=== PATIENT | female | born 1980 | race African-American/Black ===

== ENCOUNTER 2019-10-29 08:46 | Inpatient (IN) | payer OTHER ==
[~2019-10-29] VITALS: Ht 167.6 cm; Wt 108.0 kg
--- NOTE | 2019-10-29 09:11 | PHYS DOC ---
Past Medical History Past Medical History: Hypothyroid Past Surgical History: No Surgical History Additional Past Surgical Histo: Complete Thyroidectomy Smoking Status: Never Smoker Alcohol Use: Rarely Drug Use: None General Adult EDM: Chief Complaint: ABDOMINAL PAIN HPI: HPI: Patient is a 38-year-old female with a history of thyroidectomy and subsequent hypothyroidism who presents with a 2 to 3-day history of severe, progressive abdominal discomfort. She has had some nausea but no vomiting. She has had no appetite. She states the pain is primarily located in her lower abdomen and is severe in nature. She has had diarrhea that has been nonstop over the last few days. She denies any melena or hematochezia. She has not had any fever chills or sweats. She does feel profoundly weak though [] Review of Systems: Review of Systems: Constitutional: Denies fever or chills. [] Eyes: Denies change in visual acuity. [] HENT: Denies nasal congestion or sore throat. [] Respiratory: Denies cough or shortness of breath. [] Cardiovascular: Denies chest pain or edema. [] GI: Per HPI [] : Denies dysuria. [] Musculoskeletal: Denies back pain or joint pain. [] Integument: Denies rash. [] Neurologic: Denies headache, focal weakness or sensory changes. [] Endocrine: Denies polyuria or polydipsia. [] Lymphatic: Denies swollen glands. [] Psychiatric: Reports anxiety [] Heart Score: Risk Factors: Risk Factors: DM, Current or recent (<one month) smoker, HTN, HLP, family history of CAD, obesity. Risk Scores: Score 0 - 3: 2.5% MACE over next 6 weeks - Discharge Home Score 4 - 6: 20.3% MACE over next 6 weeks - Admit for Clinical Observation Score 7 - 10: 72.7% MACE over next 6 weeks - Early Invasive Strategies Allergies: Allergies: Allergies Coded Allergies Type Severity Reaction Last Updated Verified No Known Drug Allergies 12/22/14 No Physical Exam: PE: Constitutional: Well developed, well nourished, appears uncomfortable and acutely ill [] HENT: Normocephalic, atraumatic, bilateral external ears normal, oropharynx moist, no oral exudates, nose normal. [] Eyes: PERRLA, EOMI, conjunctiva normal, no discharge. [] Neck: Normal range of motion, no tenderness, supple, no stridor. [] Cardiovascular: Tachycardia no murmur [] Lungs & Thorax: Bilateral breath sounds clear to auscultation [] Abdomen: Morbidly obese, general tenderness to palpation with voluntary guarding but no rebound [] Skin: Warm, dry, no erythema, no rash. [] Back: No tenderness, no CVA tenderness. [] Extremities: No tenderness, no cyanosis, no clubbing, ROM intact, no edema. [] Neurologic: Alert and oriented X 3, normal motor function, normal sensory function, no focal deficits noted. [] Psychologic: Anxious. [] Current Patient Data: Labs: Laboratory Tests Test 10/29/19 09:01 POC Urine HCG, Qualitative Hcg negative (Negative) Vital Signs: Vital Signs Date Time Temp Pulse Resp B/P (MAP) Pulse Ox O2 Delivery O2 Flow Rate FiO2 10/29/19 08:57 98.1 134 24 162/105 (124) 99 Room Air 98.1 EKG: EKG: [] Radiology/Procedures: Radiology/Procedures: [] Impression: REASON: abdominal pain PROCEDURE: CT ABD PELV W/ IV CONTRST ONLY Study: CT abdomen/pelvis with intravenous contrast Indication: Abdominal pain. Comparison: 12/11/2005 Technique: Helical CT imaging performed of the abdomen and pelvis after the intravenous administration of 75 cc Omnipaque 300 contrast. Sagittal and coronal reformats were obtained. One or more of the following individualized dose reduction techniques were utilized for this examination: 1. Automated exposure control 2. Adjustment of the mA and/or kV according to patient size 3. Use of iterative reconstruction technique. Findings: Unremarkable lower chest. The liver is somewhat prominent in size but no different from the [address] evidence for acute cholecystitis. Unchanged caliber of the common bile duct. Unremarkable pancreas. Within normal limits spleen and adrenal glands. Symmetric kidney size and enhancement. No hydroureteronephrosis. Circumferential wall thickening of the urinary bladder though potentially in part related to underdistention. Within normal limits uterus for patient age. No concerning adnexal abnormality. Mostly collapsed colon. Some incompletely formed stool within the proximal colon suggesting a diarrheal state. Mild wall thickening of the proximal colon. The appendix is not well-visualized. Mild small bowel dilatation such as along the central aspect of the abdomen extending into the upper pelvis. No discrete transition point to suggest a mechanical obstruction however the more distal bowel exhibits mild wall thickening with surrounding inflammatory changes through the terminal ileum such as seen on axial image 77 series 2. No pneumatosis or perforation. Unremarkable stomach noting incomplete distention. Unremarkable vasculature. Small amount of fluid within the pelvis. No lymphadenopathy. No free air. Unremarkable body wall soft tissues. Asymmetric periarticular sclerosis around the right SI joint. Impression: Segments of mild small bowel dilatation in addition to regions of small bowel wall thickening and surrounding inflammatory changes such as at the anterior pelvis on image 77 series 2. Mild colonic inflammatory changes as well. The appearance does not suggest an obstruction and is favored on account of an enterocolitis either infectious or inflammatory. Recommend correlation for a known history of inflammatory bowel disease. Note is also made that there is asymmetric manifestations of sacroiliitis on the right further raising the question of inflammatory bowel disease. Course & Med Decision Making: Course & Med Decision Making Pertinent Labs and Imaging studies reviewed. (See chart for details) [ED course: Evaluation reveals a 38-year-old that appears quite ill she is tachycardic she was given 1 L of IV fluids which did bring her heart rate down from the 130s to the low 100s she was also given some pain and nausea medicine which she states did make her feel some better. Her potassium was low at 2.7 she was given 20 mEq of potassium IV and 40 mEq p.o. I do believe that she would benefit from IV hydration and a GI consult as an inpatient.] Jozef Disclaimer: Jozef Disclaimer: This electronic medical record was generated, in whole or in part, using a voice recognition dictation system. Departure Departure Impression: Primary Impression: Pancolitis Additional Impressions: Diarrhea Qualified Codes: A09 - Infectious gastroenteritis and colitis, unspecified Hypokalemia Disposition: ADMITTED INPATIENT Admitting Physician: BRENDA Condition: STABLE Referrals: VALENTINE GAMING APRN (PCP) KENNY DEMPSEY DO October 29, 2019 09:11
[2019-10-29] MEDS ORDERED: ONDANSETRON PF 4 MG/2 ML VIAL. ONE (09:42)
[2019-10-29] MEDS ORDERED: KETOROLAC 30 MG/ML VIAL. ONE (09:42)
[2019-10-29] MEDS ORDERED: fentaNYL PF VIAL 100 MCG/2 ML VIAL ONE (09:42)
[2019-10-29] MEDS ORDERED: KETOROLAC 30 MG/ML VIAL. IV ONE (09:45)
[2019-10-29] MEDS ORDERED: IV NORMAL SALINE 1000ML BAG 1,000 ML IV ONE (09:45)
[2019-10-29] MEDS ORDERED: ONDANSETRON PF 4 MG/2 ML VIAL. IV ONE (09:45)
[2019-10-29] MEDS ORDERED: fentaNYL PF VIAL 100 MCG/2 ML VIAL IV ONE (09:45)
[2019-10-29 10:06] LABS: BASO % 0 % (0-3); EOS % 0 % (0-3); HEMATOCRIT 37.3 % (36.0-47.0); HEMOGLOBIN 12.3 g/dL (12.0-15.5); LYMPH # 0.9 x10^3/uL (1.0-4.8); LYMPH % 5 % (24-48); MEAN CORPUSCULAR HEMOGLOBIN 28 pg (25-35); MEAN CORPUSCULAR HGB CONC 33 g/dL (31-37); MEAN CORPUSCULAR VOLUME 83 fL (79-100); MONO # 0.4 x10^3/uL (0.0-1.1); MONO % 2 % (0-9); NEUT % 93 % (31-73); PLATELET COUNT 345 x10^3/uL (140-400); RED BLOOD COUNT 4.48 x10^6/uL (3.50-5.40); RED CELL DISTRIBUTION WIDTH 15.7 % (11.5-14.5); WHITE BLOOD COUNT 20.3 x10^3/uL (4.0-11.0)
[2019-10-29] MEDS ORDERED: IOHEXOL 300 MG/ML 100ML VIAL. IV ONE (10:15)
[2019-10-29 10:21] LABS: ALBUMIN/GLOBULIN RATIO 0.5 (1.0-1.7); CALCIUM 8.7 mg/dL (8.5-10.1); GFR 75.1; TOTAL BILIRUBIN 0.5 mg/dL (0.2-1.0); TOTAL PROTEIN 8.5 g/dL (6.4-8.2)
[2019-10-29 10:26] LABS: POTASSIUM 2.7 mmol/L (3.5-5.1)
[2019-10-29] MEDS ORDERED: POTASSIUM CHLORIDE 20 MEQ TABLET.ER. PO ONE (10:30)
[2019-10-29] MEDS ORDERED: POTASSIUM CHLORIDE 20MEQ 100 ML IV ONE (10:45)
--- NOTE | 2019-10-29 11:12 | RAD ---
Study: CT abdomen/pelvis with intravenous contrast Indication: Abdominal pain. Comparison: 12/11/2005 Technique: Helical CT imaging performed of the abdomen and pelvis after the intravenous administration of 75 cc Omnipaque 300 contrast. Sagittal and coronal reformats were obtained. One or more of the following individualized dose reduction techniques were utilized for this examination: 1. Automated exposure control 2. Adjustment of the mA and/or kV according to patient size 3. Use of iterative reconstruction technique. Findings: Unremarkable lower chest. The liver is somewhat prominent in size but no different from the [address] evidence for acute cholecystitis. Unchanged caliber of the common bile duct. Unremarkable pancreas. Within normal limits spleen and adrenal glands. Symmetric kidney size and enhancement. No hydroureteronephrosis. Circumferential wall thickening of the urinary bladder though potentially in part related to underdistention. Within normal limits uterus for patient age. No concerning adnexal abnormality. Mostly collapsed colon. Some incompletely formed stool within the proximal colon suggesting a diarrheal state. Mild wall thickening of the proximal colon. The appendix is not well-visualized. Mild small bowel dilatation such as along the central aspect of the abdomen extending into the upper pelvis. No discrete transition point to suggest a mechanical obstruction however the more distal bowel exhibits mild wall thickening with surrounding inflammatory changes through the terminal ileum such as seen on axial image 77 series 2. No pneumatosis or perforation. Unremarkable stomach noting incomplete distention. Unremarkable vasculature. Small amount of fluid within the pelvis. No lymphadenopathy. No free air. Unremarkable body wall soft tissues. Asymmetric periarticular sclerosis around the right SI joint. Impression: Segments of mild small bowel dilatation in addition to regions of small bowel wall thickening and surrounding inflammatory changes such as at the anterior pelvis on image 77 series 2. Mild colonic inflammatory changes as well. The appearance does not suggest an obstruction and is favored on account of an enterocolitis either infectious or inflammatory. Recommend correlation for a known history of inflammatory bowel disease. Note is also made that there is asymmetric manifestations of sacroiliitis on the right further raising the question of inflammatory bowel disease. Electronically signed by: OMAR TEJADA MD (10/29/2019 11:10 AM) [id number]
[2019-10-29] MEDS ORDERED: IV NORMAL SALINE 500ML BAG 500 ML IV ONE (11:15)
[2019-10-29 11:19] LABS: % BANDS 3 % (0-9); % LYMPHS 4 % (24-48); % MONOS 2 % (0-10); % SEGS 91 % (35-66); PLT ESTIMATE ADEQUATE (ADEQUATE)
[2019-10-29] MEDS ORDERED: ACETAMINOPHEN 325 MG TABLET. PO PRN ×2 (12:00→12:15)
[2019-10-29] MEDS ORDERED: ONDANSETRON PF 4 MG/2 ML VIAL. IV PRN ×2 (12:00→12:15)
[2019-10-29] MEDS ORDERED: CIPROFLOXACIN HCL 250 MG TABLET. PO ONE (12:00)
[2019-10-29] MEDS ORDERED: POTASSIUM CHLORIDE 20 MEQ in IV NORMAL SALINE 1000ML BAG 1,000 ML IV SCH (12:10)
[2019-10-29] MEDS ORDERED: DOCUSATE SODIUM 100 MG CAPSULE. PO PRN (12:15)
[2019-10-29] MEDS ORDERED: diphenhydrAMINE 50 MG/ML VIAL IVP PRN (12:15)
[2019-10-29] MEDS ORDERED: guaiFENesin ORAL 200 MG/10 ML LIQUID. PO PRN (12:15)
[2019-10-29] MEDS ORDERED: ALBUTEROL SULFATE 2.5 MG/3 ML NEBU. NEB PRN (12:15)
--- NOTE | 2019-10-29 14:00 | PDOC2 ---
GI CONSULT Reason For Consult: pancolitis HPI: HPI: 38 y/o female seen w/ Dr. Bergman in the ER. Ill since Friday w/ abdominal cramping (diffuse, probably mostly in the middle - constant) and diarrhea (watery/loose stools). Possibly some nausea related to pain. No precipitating events and no similar symptoms in the past. Labs significant for WBC 20.3, K 2.7. On CT: mostly collapsed colon w/ mild wall thickening of proximal colon, mild small bowel dilatation w/ inflammatory changes through terminal ileum, and asymmetric periarticular sclerosis around right SI joint. Given Cipro and Flagyl IV in ER. Denies reflux/heartburn, dysphagia, vomiting, constipation, hematochezia, melena, or weight loss. No rash/skin lesions, fever, or vision changes. Typically no issues w/ nausea, abd pain, or diarrhea. No previous EGD or colonoscopy. No GB, liver, pancreas, or PUD history. Chronic LBP - stable. PMH: PMH: thyroidectomy for goiter, now hypothyroidism FH: Family History: No pertinent hx (no GI cancers or IBD), Cancer (grandfather - prostate, mother - breast) Social History: Smoke: No ALCOHOL: occassional Drugs: None ROS: GEN: Denies fevers, chills, sweats HEENT: Denies blurred vision, sore throat CV: Denies chest pain RESP: Denies shortness of air, cough GI: Per HPI : Denies hematuria, dysuria ENDO: Denies weight changes NEURO: Denies confusion, dizziness MSK: Denies weakness, joint pain/swelling SKIN: Denies jaundice, pruritus Vitals: Vitals: Vital Signs Date Time Temp Pulse Resp B/P (MAP) Pulse Ox O2 Delivery O2 Flow Rate FiO2 10/29/19 08:57 98.1 134 24 162/105 (124) 99 Room Air 98.1 Labs: Labs: Laboratory Tests Test 10/29/19 09:01 10/29/19 09:26 Bedside Urine HCG, Qualitative Hcg negative (Negative) White Blood Count 20.3 x10^3/uL (4.0-11.0) Red Blood Count 4.48 x10^6/uL (3.50-5.40) Hemoglobin 12.3 g/dL (12.0-15.5) Hematocrit 37.3 % (36.0-47.0) Mean Corpuscular Volume 83 fL (79-100) Mean Corpuscular Hemoglobin 28 pg (25-35) Mean Corpuscular Hemoglobin Concent 33 g/dL (31-37) Red Cell Distribution Width 15.7 % (11.5-14.5) Platelet Count 345 x10^3/uL (140-400) Neutrophils (%) (Auto) 93 % (31-73) Lymphocytes (%) (Auto) 5 % (24-48) Monocytes (%) (Auto) 2 % (0-9) Eosinophils (%) (Auto) 0 % (0-3) Basophils (%) (Auto) 0 % (0-3) Neutrophils # (Auto) 19.0 x10^3/uL (1.8-7.7) Lymphocytes # (Auto) 0.9 x10^3/uL (1.0-4.8) Monocytes # (Auto) 0.4 x10^3/uL (0.0-1.1) Eosinophils # (Auto) 0.0 x10^3/uL (0.0-0.7) Basophils # (Auto) 0.0 x10^3/uL (0.0-0.2) Segmented Neutrophils % 91 % (35-66) Band Neutrophils % 3 % (0-9) Lymphocytes % 4 % (24-48) Monocytes % 2 % (0-10) Platelet Estimate Adequate (ADEQUATE) Sodium Level 135 mmol/L (136-145) Potassium Level 2.7 mmol/L (3.5-5.1) Chloride Level 98 mmol/L (98-107) Carbon Dioxide Level 24 mmol/L (21-32) Anion Gap 13 (6-14) Blood Urea Nitrogen 9 mg/dL (7-20) Creatinine 1.0 mg/dL (0.6-1.0) Estimated GFR (Cockcroft-Gault) 75.1 BUN/Creatinine Ratio 9 (6-20) Glucose Level 151 mg/dL (70-99) Calcium Level 8.7 mg/dL (8.5-10.1) Total Bilirubin 0.5 mg/dL (0.2-1.0) Aspartate Amino Transf (AST/SGOT) 10 U/L (15-37) Alanine Aminotransferase (ALT/SGPT) 19 U/L (14-59) Alkaline Phosphatase 107 U/L (46-116) Total Protein 8.5 g/dL (6.4-8.2) Albumin 3.0 g/dL (3.4-5.0) Albumin/Globulin Ratio 0.5 (1.0-1.7) Lipase 50 U/L (73-393) Allergies: Coded Allergies: No Known Drug Allergies (Unverified , 12/22/14) Medications: Current Medications Medications (Trade) Dose Ordered Sig/Frannie Route PRN Reason Start Time Stop Time Status Last Admin Dose Admin Sodium Chloride 1,000 ml @ 1,000 mls/hr 1X ONCE IV 10/29/19 09:45 10/29/19 10:44 DC 10/29/19 09:45 Fentanyl Citrate (Fentanyl 2ml Vial) 50 mcg 1X ONCE IV 10/29/19 09:45 10/29/19 09:46 DC 10/29/19 09:45 Ketorolac Tromethamine (Toradol 30mg Vial) 30 mg 1X ONCE IV 10/29/19 09:45 10/29/19 09:46 DC 10/29/19 09:44 Ondansetron HCl (Zofran) 4 mg 1X ONCE IV 10/29/19 09:45 10/29/19 09:46 DC 10/29/19 09:44 Iohexol (Omnipaque 300 Mg/ml) 75 ml 1X ONCE IV 10/29/19 10:15 10/29/19 10:21 DC 10/29/19 10:38 Potassium Chloride (Klor-Con) 40 meq 1X ONCE PO 10/29/19 10:30 10/29/19 10:36 DC 10/29/19 10:53 Potassium Chloride/Water 100 ml @ 50 mls/hr 1X ONCE IV 10/29/19 10:45 10/29/19 12:44 DC 10/29/19 10:53 Sodium Chloride 500 ml @ 100 mls/hr 1X ONCE IV 10/29/19 11:15 10/29/19 16:14 10/29/19 10:57 Ciprofloxacin (Cipro) 500 mg 1X ONCE PO 10/29/19 12:00 10/29/19 12:03 DC 10/29/19 12:28 Imaging: Imaging: CT A/P w/ IV contrast 10/29/19 Impression: Segments of mild small bowel dilatation in addition to regions of small bowel wall thickening and surrounding inflammatory changes such as at the anterior pelvis on image 77 series 2. Mild colonic inflammatory changes aswell. The appearance does not suggest an obstruction and is favored on account of an enterocolitis either infectious or inflammatory. Recommend correlation for a known history of inflammatory bowel disease. Note is also made that there is asymmetric manifestations of sacroiliitis on the right further raising the question of inflammatory bowel disease. PE: GEN: NAD HEENT: Atraumatic, PERRL LUNGS: CTAB anteriorly HEART: tachycardic ABD: NABS, soft, periumbilical tenderness/discomfort throughout EXTREMITY: No edema SKIN: No rashes, no jaundice NEURO/PSYCH: A & O 3 A/P: A/P: Abd pain, diarrhea Leukocytosis, hypokalemia Abnormal CT - mild wall thickening of proximal colon, mild small bowel dilatation w/ inflammatory changes through terminal ileum CRC screen - average risk -- ?infectious? - CT report w/ concern for possible IBD though no h/o chronic GI problems. Check stool studies, blood and urine cultures. Continue IV antibiotics and NPO w/ ice chips/sips for now. FÉLIX HAYNES October 29, 2019 14:00
[2019-10-29 15:23] VITALS: BP 168/101
[2019-10-29] MEDS: AZITHROMYCIN 500 MG in IV NORMAL SALINE 250ML 250 ML IV SCH (15:43)
[2019-10-29] MEDS: ENOXAPARIN 40 MG/0.4 ML SYRINGE. SQ SCH (16:09)
[2019-10-29] MEDS: DICYCLOMINE HCL 10 MG CAPSULE PO PRN ×2 (16:10→20:54)
[2019-10-29] MEDS: fentaNYL PF VIAL 100 MCG/2 ML VIAL IV PRN ×2 (17:44→19:45)
[2019-10-29 19:00] VITALS: BP 142/88
[2019-10-29] MEDS: LORazepam 0.5 MG TABLET PO PRN (19:45)
[2019-10-29] MEDS ORDERED: fentaNYL PF VIAL 100 MCG/2 ML VIAL IVP PRN (20:15)
[2019-10-29] MEDS: ZOLPIDEM 5 MG TABLET. PO PRN (20:54)
--- NOTE | 2019-10-29 21:17 | PDOC1 ---
History and Physical Date of Admission Date of Admission 10/29/2019 Identification/Chief Complaint Chief Complaint My stomach hurts History of Present Illness History of Present Illness Patient is a 38 year old female with no significant past medical history who comes with a 2 day history of feeling nauseous. She also relates having several loose bowel movements for the last 2 days. Patient initially did not have abdominal discomfort but today she presented crampy generalized abdominal discomfort that started as a 3 out of 10 intensity and gradually got worse. prompting her visit to the ER. Patient also has not had a good oral intake over the last 2 days due to her symptoms. Patient denies dietary transgression, no sick contacts, no history of recent antibiotics use. No fever chills, no headache, no chest pain and not other associated symptoms. were reported. She denies history of odynophagia, dysphagia no melena no hematemesis reported, she was found to have labs abnormalities on evluation in the Ed and changes consistent with colitis on CT scan of the abdomen reason why we have been asked to admit patient for further evaluation and treatment. At the time of my visit, patient seems to be in no acute distress. Past Medical History Past Medical History pertinent as per hpi Family History Family History: Other (reviewed and found non contributory to the present. ) Social History Smoke: No ALCOHOL: occassional Drugs: None Current Problem List Problem List Problems Medical Problems: (1) Diarrhea Status: Acute (2) Hypokalemia Status: Acute (3) Pancolitis Status: Acute Current Medications Current Medications Current Medications Medications (Trade) Dose Ordered Sig/Frannie Start Time Stop Time Status Last Admin Dose Admin Acetaminophen (Tylenol) 650 mg PRN Q4HRS PRN 10/29/19 12:15 Albuterol Sulfate (Ventolin Neb Soln) 2.5 mg PRN Q4HRS PRN 10/29/19 12:15 Azithromycin 500 mg/Sodium Chloride 250 ml @ 250 mls/hr Q24H 10/29/19 16:00 10/29/19 15:43 250 MLS/HR Ciprofloxacin (Cipro) 500 mg 1X ONCE 10/29/19 12:00 10/29/19 12:03 DC 10/29/19 12:28 500 MG Dicyclomine HCl (Bentyl) 10 mg PRN QID PRN 10/29/19 16:00 10/29/19 20:54 10 MG Diphenhydramine HCl (Benadryl) 25 mg PRN Q4HRS PRN 10/29/19 12:15 Docusate Sodium (Colace) 100 mg PRN BID PRN 10/29/19 12:15 Enoxaparin Sodium (Lovenox 40mg Syringe) 40 mg Q24H 10/29/19 13:00 10/29/19 16:09 40 MG Fentanyl Citrate (Fentanyl 2ml Vial) 100 mcg PRN Q1HR PRN 10/29/19 20:15 10/29/19 20:53 100 MCG Guaifenesin (Robitussin) 200 mg PRN Q4HRS PRN 10/29/19 12:15 Iohexol (Omnipaque 300 Mg/ml) 75 ml 1X ONCE 10/29/19 10:15 10/29/19 10:21 DC 10/29/19 10:38 75 ML Ketorolac Tromethamine (Toradol 30mg Vial) 30 mg STK-MED ONCE 10/29/19 09:42 10/29/19 09:42 DC Levofloxacin/ Dextrose 100 ml @ 100 mls/hr Q24H 10/29/19 15:00 10/29/19 14:30 100 MLS/HR Lorazepam (Ativan) 0.5 mg PRN Q4HRS PRN 10/29/19 12:15 10/29/19 19:45 0.5 MG Metronidazole 100 ml @ 100 mls/hr 1X ONCE 10/29/19 12:00 10/29/19 12:59 DC 10/29/19 12:00 100 MLS/HR Ondansetron HCl (Zofran) 4 mg PRN Q4HRS PRN 10/29/19 12:15 Potassium Chloride 20 meq/ Sodium Chloride 1,010 ml @ 125 mls/hr Q8H5M 10/29/19 12:10 10/30/19 12:09 UNV Potassium Chloride/Sodium Chloride 1,000 ml @ 125 mls/hr Q8H 10/29/19 12:15 10/29/19 20:14 DC 10/29/19 14:59 125 MLS/HR Potassium Chloride/Water 100 ml @ 50 mls/hr 1X ONCE 10/29/19 10:45 10/29/19 12:44 DC 10/29/19 10:53 50 MLS/HR Potassium Chloride (Klor-Con) 40 meq 1X ONCE 10/29/19 10:30 10/29/19 10:36 DC 10/29/19 10:53 40 MEQ Sodium Chloride 500 ml @ 100 mls/hr 1X ONCE 10/29/19 11:15 10/29/19 16:14 DC 10/29/19 10:57 100 MLS/HR Zolpidem Tartrate (Ambien) 5 mg PRN QHS PRN 10/29/19 12:15 10/29/19 20:54 5 MG Allergies Allergies Allergies Coded Allergies Type Severity Reaction Last Updated Verified No Known Drug Allergies 12/22/14 No ROS Review of System CONSTITUTIONAL: No fever or chills EYES: No recent changes SKIN: No rash or itching CARDIOVASCULAR: No chest pain, syncope, palpitations, or edema RESPIRATORY: No SOB or cough GASTROINTESTINAL: + nausea, vomiting and abdominal pain NEUROLOGICAL: No headaches or weakness ENDOCRINE: No cold or heat intolerance GENITOURINARY: No urgency or frequency of urination MUSCULOSKELETAL: No back pain or joint pain LYMPHATICS: No enlarged lymph nodes PSYCHIATRIC: No anxiety or depression Physical Exam Physical Exam GEN.: No apparent distress. Alert and oriented. HEENT: Head is normocephalic, atraumatic NECK: Supple. LUNGS: Clear to auscultation. HEART: RRR, S1, S2 present. Peripheral pulses intact ABDOMEN: Soft, nontender. Positive bowel sounds. EXTREMITIES: Without any cyanosis. NEUROLOGIC: Normal speech, normal tone PSYCHIATRIC: Normal affect, normal mood. SKIN: No ulcerations Vitals Vitals Vital Signs Date Time Temp Pulse Resp B/P (MAP) Pulse Ox O2 Delivery O2 Flow Rate FiO2 10/29/19 20:04 Room Air 10/29/19 19:00 98.8 85 20 142/88 (106) 98 98.8 Labs Labs Laboratory Tests Test 10/29/19 09:01 10/29/19 09:26 Bedside Urine HCG, Qualitative Hcg negative (Negative) White Blood Count 20.3 x10^3/uL (4.0-11.0) Red Blood Count 4.48 x10^6/uL (3.50-5.40) Hemoglobin 12.3 g/dL (12.0-15.5) Hematocrit 37.3 % (36.0-47.0) Mean Corpuscular Volume 83 fL (79-100) Mean Corpuscular Hemoglobin 28 pg (25-35) Mean Corpuscular Hemoglobin Concent 33 g/dL (31-37) Red Cell Distribution Width 15.7 % (11.5-14.5) Platelet Count 345 x10^3/uL (140-400) Neutrophils (%) (Auto) 93 % (31-73) Lymphocytes (%) (Auto) 5 % (24-48) Monocytes (%) (Auto) 2 % (0-9) Eosinophils (%) (Auto) 0 % (0-3) Basophils (%) (Auto) 0 % (0-3) Neutrophils # (Auto) 19.0 x10^3/uL (1.8-7.7) Lymphocytes # (Auto) 0.9 x10^3/uL (1.0-4.8) Monocytes # (Auto) 0.4 x10^3/uL (0.0-1.1) Eosinophils # (Auto) 0.0 x10^3/uL (0.0-0.7) Basophils # (Auto) 0.0 x10^3/uL (0.0-0.2) Segmented Neutrophils % 91 % (35-66) Band Neutrophils % 3 % (0-9) Lymphocytes % 4 % (24-48) Monocytes % 2 % (0-10) Platelet Estimate Adequate (ADEQUATE) Sodium Level 135 mmol/L (136-145) Potassium Level 2.7 mmol/L (3.5-5.1) Chloride Level 98 mmol/L (98-107) Carbon Dioxide Level 24 mmol/L (21-32) Anion Gap 13 (6-14) Blood Urea Nitrogen 9 mg/dL (7-20) Creatinine 1.0 mg/dL (0.6-1.0) Estimated GFR (Cockcroft-Gault) 75.1 BUN/Creatinine Ratio 9 (6-20) Glucose Level 151 mg/dL (70-99) Calcium Level 8.7 mg/dL (8.5-10.1) Iron Level 15 ug/dL (50-170) Total Iron Binding Capacity 249 ug/dL (250-450) Iron Saturation 6 % (15-34) Total Bilirubin 0.5 mg/dL (0.2-1.0) Aspartate Amino Transf (AST/SGOT) 10 U/L (15-37) Alanine Aminotransferase (ALT/SGPT) 19 U/L (14-59) Alkaline Phosphatase 107 U/L (46-116) Total Protein 8.5 g/dL (6.4-8.2) Albumin 3.0 g/dL (3.4-5.0) Albumin/Globulin Ratio 0.5 (1.0-1.7) Lipase 50 U/L (73-393) Laboratory Tests Test 10/29/19 09:01 10/29/19 09:26 Bedside Urine HCG, Qualitative Hcg negative (Negative) White Blood Count 20.3 x10^3/uL (4.0-11.0) Red Blood Count 4.48 x10^6/uL (3.50-5.40) Hemoglobin 12.3 g/dL (12.0-15.5) Hematocrit 37.3 % (36.0-47.0) Mean Corpuscular Volume 83 fL (79-100) Mean Corpuscular Hemoglobin 28 pg (25-35) Mean Corpuscular Hemoglobin Concent 33 g/dL (31-37) Red Cell Distribution Width 15.7 % (11.5-14.5) Platelet Count 345 x10^3/uL (140-400) Neutrophils (%) (Auto) 93 % (31-73) Lymphocytes (%) (Auto) 5 % (24-48) Monocytes (%) (Auto) 2 % (0-9) Eosinophils (%) (Auto) 0 % (0-3) Basophils (%) (Auto) 0 % (0-3) Neutrophils # (Auto) 19.0 x10^3/uL (1.8-7.7) Lymphocytes # (Auto) 0.9 x10^3/uL (1.0-4.8) Monocytes # (Auto) 0.4 x10^3/uL (0.0-1.1) Eosinophils # (Auto) 0.0 x10^3/uL (0.0-0.7) Basophils # (Auto) 0.0 x10^3/uL (0.0-0.2) Segmented Neutrophils % 91 % (35-66) Band Neutrophils % 3 % (0-9) Lymphocytes % 4 % (24-48) Monocytes % 2 % (0-10) Platelet Estimate Adequate (ADEQUATE) Sodium Level 135 mmol/L (136-145) Potassium Level 2.7 mmol/L (3.5-5.1) Chloride Level 98 mmol/L (98-107) Carbon Dioxide Level 24 mmol/L (21-32) Anion Gap 13 (6-14) Blood Urea Nitrogen 9 mg/dL (7-20) Creatinine 1.0 mg/dL (0.6-1.0) Estimated GFR (Cockcroft-Gault) 75.1 BUN/Creatinine Ratio 9 (6-20) Glucose Level 151 mg/dL (70-99) Calcium Level 8.7 mg/dL (8.5-10.1) Iron Level 15 ug/dL (50-170) Total Iron Binding Capacity 249 ug/dL (250-450) Iron Saturation 6 % (15-34) Total Bilirubin 0.5 mg/dL (0.2-1.0) Aspartate Amino Transf (AST/SGOT) 10 U/L (15-37) Alanine Aminotransferase (ALT/SGPT) 19 U/L (14-59) Alkaline Phosphatase 107 U/L (46-116) Total Protein 8.5 g/dL (6.4-8.2) Albumin 3.0 g/dL (3.4-5.0) Albumin/Globulin Ratio 0.5 (1.0-1.7) Lipase 50 U/L (73-393) VTE Prophylaxis Ordered VTE Prophylaxis Devices: Yes VTE Pharmacological Prophylaxi: Yes Assessment/Plan Assessment/Plan Abdomiinal pain secondary to acute colitis, etiology undetermined at the present time. Leukocytosis Moderate dehydration Iron deficiency Plan: will start empiric atb treatment with cipro and flagyl consult GI symptomatic relief of symptoms labs in the am reassess in the am further recommendations based on clinical course. JERROD SANFORD MD October 29, 2019 21:17
[2019-10-29] MEDS: fentaNYL PF VIAL 100 MCG/2 ML VIAL IVP PRN (22:23)
[2019-10-29] MEDS ORDERED: KETOROLAC 30 MG/ML VIAL. IVP ONE (22:30)
[2019-10-29 23:00] VITALS: BP 155/102
[2019-10-30] MEDS: fentaNYL PF VIAL 100 MCG/2 ML VIAL IVP PRN ×6 (03:16→21:28)
[2019-10-30 03:36] VITALS: BP 146/92
[2019-10-30 05:08] LABS: BASO % 0 % (0-3); EOS % 0 % (0-3); HEMATOCRIT 33.4 % (36.0-47.0); HEMOGLOBIN 10.9 g/dL (12.0-15.5); LYMPH # 1.5 x10^3/uL (1.0-4.8); LYMPH % 13 % (24-48); MEAN CORPUSCULAR HEMOGLOBIN 28 pg (25-35); MEAN CORPUSCULAR HGB CONC 33 g/dL (31-37); MEAN CORPUSCULAR VOLUME 85 fL (79-100); MONO # 0.5 x10^3/uL (0.0-1.1); MONO % 4 % (0-9); NEUT # 9.4 x10^3/uL (1.8-7.7); NEUT % 82 % (31-73); PLATELET COUNT 293 x10^3/uL (140-400); RED BLOOD COUNT 3.94 x10^6/uL (3.50-5.40); RED CELL DISTRIBUTION WIDTH 15.7 % (11.5-14.5); WHITE BLOOD COUNT 11.4 x10^3/uL (4.0-11.0)
[2019-10-30 05:09] LABS: CALCIUM 7.7 mg/dL (8.5-10.1); GFR 75.1; POTASSIUM 3.8 mmol/L (3.5-5.1)
[2019-10-30 07:15] VITALS: BP 155/105
[2019-10-30] MEDS: DICYCLOMINE HCL 10 MG CAPSULE PO PRN (10:40)
[2019-10-30] MEDS ORDERED: KETOROLAC 30 MG/ML VIAL. IVP ONE (11:15)
[2019-10-30 11:20] VITALS: BP 139/95
--- NOTE | 2019-10-30 11:48 | PDOC ---
G I PROGRESS NOTE Subjective Feels much better. Diarrhea slowing a great deal. Physical Exam Lungs clear. RRR Abdomen mild diffuse tenderness. Review of Relevant I have reviewed the following items liz (where applicable) has been applied. Labs Laboratory Tests Test 10/29/19 09:01 10/29/19 09:26 10/30/19 04:30 Bedside Urine HCG, Qualitative Hcg negative (Negative) White Blood Count 20.3 x10^3/uL (4.0-11.0) 11.4 x10^3/uL (4.0-11.0) Red Blood Count 4.48 x10^6/uL (3.50-5.40) 3.94 x10^6/uL (3.50-5.40) Hemoglobin 12.3 g/dL (12.0-15.5) 10.9 g/dL (12.0-15.5) Hematocrit 37.3 % (36.0-47.0) 33.4 % (36.0-47.0) Mean Corpuscular Volume 83 fL (79-100) 85 fL (79-100) Mean Corpuscular Hemoglobin 28 pg (25-35) 28 pg (25-35) Mean Corpuscular Hemoglobin Concent 33 g/dL (31-37) 33 g/dL (31-37) Red Cell Distribution Width 15.7 % (11.5-14.5) 15.7 % (11.5-14.5) Platelet Count 345 x10^3/uL (140-400) 293 x10^3/uL (140-400) Neutrophils (%) (Auto) 93 % (31-73) 82 % (31-73) Lymphocytes (%) (Auto) 5 % (24-48) 13 % (24-48) Monocytes (%) (Auto) 2 % (0-9) 4 % (0-9) Eosinophils (%) (Auto) 0 % (0-3) 0 % (0-3) Basophils (%) (Auto) 0 % (0-3) 0 % (0-3) Neutrophils # (Auto) 19.0 x10^3/uL (1.8-7.7) 9.4 x10^3/uL (1.8-7.7) Lymphocytes # (Auto) 0.9 x10^3/uL (1.0-4.8) 1.5 x10^3/uL (1.0-4.8) Monocytes # (Auto) 0.4 x10^3/uL (0.0-1.1) 0.5 x10^3/uL (0.0-1.1) Eosinophils # (Auto) 0.0 x10^3/uL (0.0-0.7) 0.0 x10^3/uL (0.0-0.7) Basophils # (Auto) 0.0 x10^3/uL (0.0-0.2) 0.0 x10^3/uL (0.0-0.2) Segmented Neutrophils % 91 % (35-66) Band Neutrophils % 3 % (0-9) Lymphocytes % 4 % (24-48) Monocytes % 2 % (0-10) Platelet Estimate Adequate (ADEQUATE) Sodium Level 135 mmol/L (136-145) 139 mmol/L (136-145) Potassium Level 2.7 mmol/L (3.5-5.1) 3.8 mmol/L (3.5-5.1) Chloride Level 98 mmol/L (98-107) 105 mmol/L (98-107) Carbon Dioxide Level 24 mmol/L (21-32) 24 mmol/L (21-32) Anion Gap 13 (6-14) 10 (6-14) Blood Urea Nitrogen 9 mg/dL (7-20) 12 mg/dL (7-20) Creatinine 1.0 mg/dL (0.6-1.0) 1.0 mg/dL (0.6-1.0) Estimated GFR (Cockcroft-Gault) 75.1 75.1 BUN/Creatinine Ratio 9 (6-20) Glucose Level 151 mg/dL (70-99) 89 mg/dL (70-99) Calcium Level 8.7 mg/dL (8.5-10.1) 7.7 mg/dL (8.5-10.1) Iron Level 15 ug/dL (50-170) Total Iron Binding Capacity 249 ug/dL (250-450) Iron Saturation 6 % (15-34) Total Bilirubin 0.5 mg/dL (0.2-1.0) Aspartate Amino Transf (AST/SGOT) 10 U/L (15-37) Alanine Aminotransferase (ALT/SGPT) 19 U/L (14-59) Alkaline Phosphatase 107 U/L (46-116) Total Protein 8.5 g/dL (6.4-8.2) Albumin 3.0 g/dL (3.4-5.0) Albumin/Globulin Ratio 0.5 (1.0-1.7) Lipase 50 U/L (73-393) Thyroid Stimulating Hormone (TSH) 6.181 uIU/mL (0.358-3.74) Laboratory Tests Test 10/30/19 04:30 White Blood Count 11.4 x10^3/uL (4.0-11.0) Red Blood Count 3.94 x10^6/uL (3.50-5.40) Hemoglobin 10.9 g/dL (12.0-15.5) Hematocrit 33.4 % (36.0-47.0) Mean Corpuscular Volume 85 fL (79-100) Mean Corpuscular Hemoglobin 28 pg (25-35) Mean Corpuscular Hemoglobin Concent 33 g/dL (31-37) Red Cell Distribution Width 15.7 % (11.5-14.5) Platelet Count 293 x10^3/uL (140-400) Neutrophils (%) (Auto) 82 % (31-73) Lymphocytes (%) (Auto) 13 % (24-48) Monocytes (%) (Auto) 4 % (0-9) Eosinophils (%) (Auto) 0 % (0-3) Basophils (%) (Auto) 0 % (0-3) Neutrophils # (Auto) 9.4 x10^3/uL (1.8-7.7) Lymphocytes # (Auto) 1.5 x10^3/uL (1.0-4.8) Monocytes # (Auto) 0.5 x10^3/uL (0.0-1.1) Eosinophils # (Auto) 0.0 x10^3/uL (0.0-0.7) Basophils # (Auto) 0.0 x10^3/uL (0.0-0.2) Sodium Level 139 mmol/L (136-145) Potassium Level 3.8 mmol/L (3.5-5.1) Chloride Level 105 mmol/L (98-107) Carbon Dioxide Level 24 mmol/L (21-32) Anion Gap 10 (6-14) Blood Urea Nitrogen 12 mg/dL (7-20) Creatinine 1.0 mg/dL (0.6-1.0) Estimated GFR (Cockcroft-Gault) 75.1 Glucose Level 89 mg/dL (70-99) Calcium Level 7.7 mg/dL (8.5-10.1) Thyroid Stimulating Hormone (TSH) 6.181 uIU/mL (0.358-3.74) Microbiology 10/29/19 Fecal Leukocyte Stain - Final, Complete Iron studies c/w ACD/BECKY combination. TSH up a little. Stool studes, cultures pending. Vitals/I & O Vital Sign - Last 24 Hours 10/29/19 10/29/19 10/29/19 10/29/19 13:03 15:00 15:23 16:14 Temp 97.8 97.8 Pulse 92 79 Resp 16 18 B/P (MAP) 151/78 (102) 168/101 (123) Pulse Ox 98 98 100 O2 Delivery Room Air Room Air Room Air Nasal Cannula 10/29/19 10/29/19 10/29/19 10/29/19 17:44 18:14 19:00 20:04 Temp 98.8 98.8 Pulse 85 Resp 18 18 20 B/P (MAP) 142/88 (106) Pulse Ox 98 O2 Delivery Room Air Room Air Room Air Room Air 10/29/19 10/30/19 10/30/19 10/30/19 23:00 03:36 07:15 08:00 Temp 98.3 97.6 97.6 98.3 97.6 97.6 Pulse 94 87 101 Resp 18 18 18 B/P (MAP) 155/102 (119) 146/92 (110) 155/105 (122) Pulse Ox 100 100 98 O2 Delivery Room Air Room Air Room Air Room Air 10/30/19 10/30/19 10/30/19 10/30/19 08:33 09:12 10:41 11:15 Pulse Ox 98 98 98 98 O2 Delivery Room Air Room Air Room Air Room Air 10/30/19 11:20 Temp 97.2 97.2 Pulse 95 Resp 16 B/P (MAP) 139/95 (110) Pulse Ox 98 O2 Delivery Room Air Intake and Output 10/29/19 10/29/19 10/30/19 15:00 23:00 07:00 Intake Total 10 ml Balance 10 ml Problem List Problems Medical Problems: (1) Diarrhea Status: Acute (2) Hypokalemia Status: Acute (3) Pancolitis Status: Acute Assessment Likely infectious enterocolitis, organism unclear but on "shotgun" treatment. BECKY? Seems superimposed on ACD. She says anemia for "a while". Inadequate thyroid (usually on 0.125)? Plan of Care Note Await stool studies. Continue Rx as now. OK to advance diet some. Would merit endoscopic evaluation in the future. Follow labs. Hemodynamically unstable?: No Is patient in severe pain?: No Is NPO status required?: No STEPHEN FRY MD October 30, 2019 11:48
[2019-10-30] MEDS: ENOXAPARIN 40 MG/0.4 ML SYRINGE. SQ SCH (13:35)
[2019-10-30 14:13] LABS: FREE T4 1.39 ng/dL (0.76-1.46)
[2019-10-30 15:02] VITALS: BP 132/91
--- NOTE | 2019-10-30 18:52 | PDOC ---
PROGRESS NOTES Chief Complaint Chief Complaint Assessment/Plan Abdomiinal pain secondary to acute colitis, etiology undetermined at the present time but likely infectious in nature Leukocytosis improved Moderate dehydration improved Iron deficiency Hypothyroidism Plan: continue antibiotics follow gi recommendations symptomatic relief of symptoms reassess in the am hopefully discharge soon History of Present Illness History of Present Illness No acute events reported overnight, case discussed with nursing staff patient in no acute distress no complaints during my visit Vitals Vitals Vital Signs Date Time Temp Pulse Resp B/P (MAP) Pulse Ox O2 Delivery O2 Flow Rate FiO2 10/30/19 15:02 97.8 64 18 132/91 (105) 99 Room Air 97.8 Physical Exam Physical Exam GEN.: No apparent distress. Alert and oriented. HEENT: Head is normocephalic, atraumatic NECK: Supple. LUNGS: Clear to auscultation. HEART: RRR, S1, S2 present. Peripheral pulses intact ABDOMEN: Soft, nontender. Positive bowel sounds. EXTREMITIES: Without any cyanosis. NEUROLOGIC: Normal speech, normal tone PSYCHIATRIC: Normal affect, normal mood. SKIN: No ulcerations Labs LABS Laboratory Tests Test 10/30/19 04:30 White Blood Count 11.4 x10^3/uL (4.0-11.0) Red Blood Count 3.94 x10^6/uL (3.50-5.40) Hemoglobin 10.9 g/dL (12.0-15.5) Hematocrit 33.4 % (36.0-47.0) Mean Corpuscular Volume 85 fL (79-100) Mean Corpuscular Hemoglobin 28 pg (25-35) Mean Corpuscular Hemoglobin Concent 33 g/dL (31-37) Red Cell Distribution Width 15.7 % (11.5-14.5) Platelet Count 293 x10^3/uL (140-400) Neutrophils (%) (Auto) 82 % (31-73) Lymphocytes (%) (Auto) 13 % (24-48) Monocytes (%) (Auto) 4 % (0-9) Eosinophils (%) (Auto) 0 % (0-3) Basophils (%) (Auto) 0 % (0-3) Neutrophils # (Auto) 9.4 x10^3/uL (1.8-7.7) Lymphocytes # (Auto) 1.5 x10^3/uL (1.0-4.8) Monocytes # (Auto) 0.5 x10^3/uL (0.0-1.1) Eosinophils # (Auto) 0.0 x10^3/uL (0.0-0.7) Basophils # (Auto) 0.0 x10^3/uL (0.0-0.2) Sodium Level 139 mmol/L (136-145) Potassium Level 3.8 mmol/L (3.5-5.1) Chloride Level 105 mmol/L (98-107) Carbon Dioxide Level 24 mmol/L (21-32) Anion Gap 10 (6-14) Blood Urea Nitrogen 12 mg/dL (7-20) Creatinine 1.0 mg/dL (0.6-1.0) Estimated GFR (Cockcroft-Gault) 75.1 Glucose Level 89 mg/dL (70-99) Calcium Level 7.7 mg/dL (8.5-10.1) Thyroid Stimulating Hormone (TSH) 6.181 uIU/mL (0.358-3.74) Free Thyroxine 1.39 ng/dL (0.76-1.46) Free Triiodothyronine (T3) pg/mL 1.00 pg/mL (2.18-3.98) Review of Systems Review of Systems Pertinent as per HPI otherwise 14 point review of system is negative Assessment and Plan Assessmemt and Plan Problems Medical Problems: (1) Diarrhea Status: Acute (2) Hypokalemia Status: Acute (3) Pancolitis Status: Acute Comment Review of Relevant I have reviewed the following items liz (where applicable) has been applied. Labs Laboratory Tests Test 10/29/19 09:01 10/29/19 09:26 10/30/19 04:30 Bedside Urine HCG, Qualitative Hcg negative (Negative) White Blood Count 20.3 x10^3/uL (4.0-11.0) 11.4 x10^3/uL (4.0-11.0) Red Blood Count 4.48 x10^6/uL (3.50-5.40) 3.94 x10^6/uL (3.50-5.40) Hemoglobin 12.3 g/dL (12.0-15.5) 10.9 g/dL (12.0-15.5) Hematocrit 37.3 % (36.0-47.0) 33.4 % (36.0-47.0) Mean Corpuscular Volume 83 fL (79-100) 85 fL (79-100) Mean Corpuscular Hemoglobin 28 pg (25-35) 28 pg (25-35) Mean Corpuscular Hemoglobin Concent 33 g/dL (31-37) 33 g/dL (31-37) Red Cell Distribution Width 15.7 % (11.5-14.5) 15.7 % (11.5-14.5) Platelet Count 345 x10^3/uL (140-400) 293 x10^3/uL (140-400) Neutrophils (%) (Auto) 93 % (31-73) 82 % (31-73) Lymphocytes (%) (Auto) 5 % (24-48) 13 % (24-48) Monocytes (%) (Auto) 2 % (0-9) 4 % (0-9) Eosinophils (%) (Auto) 0 % (0-3) 0 % (0-3) Basophils (%) (Auto) 0 % (0-3) 0 % (0-3) Neutrophils # (Auto) 19.0 x10^3/uL (1.8-7.7) 9.4 x10^3/uL (1.8-7.7) Lymphocytes # (Auto) 0.9 x10^3/uL (1.0-4.8) 1.5 x10^3/uL (1.0-4.8) Monocytes # (Auto) 0.4 x10^3/uL (0.0-1.1) 0.5 x10^3/uL (0.0-1.1) Eosinophils # (Auto) 0.0 x10^3/uL (0.0-0.7) 0.0 x10^3/uL (0.0-0.7) Basophils # (Auto) 0.0 x10^3/uL (0.0-0.2) 0.0 x10^3/uL (0.0-0.2) Segmented Neutrophils % 91 % (35-66) Band Neutrophils % 3 % (0-9) Lymphocytes % 4 % (24-48) Monocytes % 2 % (0-10) Platelet Estimate Adequate (ADEQUATE) Sodium Level 135 mmol/L (136-145) 139 mmol/L (136-145) Potassium Level 2.7 mmol/L (3.5-5.1) 3.8 mmol/L (3.5-5.1) Chloride Level 98 mmol/L (98-107) 105 mmol/L (98-107) Carbon Dioxide Level 24 mmol/L (21-32) 24 mmol/L (21-32) Anion Gap 13 (6-14) 10 (6-14) Blood Urea Nitrogen 9 mg/dL (7-20) 12 mg/dL (7-20) Creatinine 1.0 mg/dL (0.6-1.0) 1.0 mg/dL (0.6-1.0) Estimated GFR (Cockcroft-Gault) 75.1 75.1 BUN/Creatinine Ratio 9 (6-20) Glucose Level 151 mg/dL (70-99) 89 mg/dL (70-99) Calcium Level 8.7 mg/dL (8.5-10.1) 7.7 mg/dL (8.5-10.1) Iron Level 15 ug/dL (50-170) Total Iron Binding Capacity 249 ug/dL (250-450) Iron Saturation 6 % (15-34) Total Bilirubin 0.5 mg/dL (0.2-1.0) Aspartate Amino Transf (AST/SGOT) 10 U/L (15-37) Alanine Aminotransferase (ALT/SGPT) 19 U/L (14-59) Alkaline Phosphatase 107 U/L (46-116) Total Protein 8.5 g/dL (6.4-8.2) Albumin 3.0 g/dL (3.4-5.0) Albumin/Globulin Ratio 0.5 (1.0-1.7) Lipase 50 U/L (73-393) Thyroid Stimulating Hormone (TSH) 6.181 uIU/mL (0.358-3.74) Free Thyroxine 1.39 ng/dL (0.76-1.46) Free Triiodothyronine (T3) pg/mL 1.00 pg/mL (2.18-3.98) Laboratory Tests Test 10/30/19 04:30 White Blood Count 11.4 x10^3/uL (4.0-11.0) Red Blood Count 3.94 x10^6/uL (3.50-5.40) Hemoglobin 10.9 g/dL (12.0-15.5) Hematocrit 33.4 % (36.0-47.0) Mean Corpuscular Volume 85 fL (79-100) Mean Corpuscular Hemoglobin 28 pg (25-35) Mean Corpuscular Hemoglobin Concent 33 g/dL (31-37) Red Cell Distribution Width 15.7 % (11.5-14.5) Platelet Count 293 x10^3/uL (140-400) Neutrophils (%) (Auto) 82 % (31-73) Lymphocytes (%) (Auto) 13 % (24-48) Monocytes (%) (Auto) 4 % (0-9) Eosinophils (%) (Auto) 0 % (0-3) Basophils (%) (Auto) 0 % (0-3) Neutrophils # (Auto) 9.4 x10^3/uL (1.8-7.7) Lymphocytes # (Auto) 1.5 x10^3/uL (1.0-4.8) Monocytes # (Auto) 0.5 x10^3/uL (0.0-1.1) Eosinophils # (Auto) 0.0 x10^3/uL (0.0-0.7) Basophils # (Auto) 0.0 x10^3/uL (0.0-0.2) Sodium Level 139 mmol/L (136-145) Potassium Level 3.8 mmol/L (3.5-5.1) Chloride Level 105 mmol/L (98-107) Carbon Dioxide Level 24 mmol/L (21-32) Anion Gap 10 (6-14) Blood Urea Nitrogen 12 mg/dL (7-20) Creatinine 1.0 mg/dL (0.6-1.0) Estimated GFR (Cockcroft-Gault) 75.1 Glucose Level 89 mg/dL (70-99) Calcium Level 7.7 mg/dL (8.5-10.1) Thyroid Stimulating Hormone (TSH) 6.181 uIU/mL (0.358-3.74) Free Thyroxine 1.39 ng/dL (0.76-1.46) Free Triiodothyronine (T3) pg/mL 1.00 pg/mL (2.18-3.98) Microbiology 10/29/19 Fecal Leukocyte Stain - Final, Complete 10/29/19 Blood Culture - Preliminary, Resulted NO GROWTH AFTER 1 DAY Medications Current Medications Sodium Chloride 1,000 ml @ 1,000 mls/hr 1X ONCE IV Last administered on 10/29/19at 09:45; Start 10/29/19 at 09:45; Stop 10/29/19 at 10:44; Status DC Fentanyl Citrate (Fentanyl 2ml Vial) 50 mcg 1X ONCE IV Last administered on 10/29/19at 09:45; Start 10/29/19 at 09:45; Stop 10/29/19 at 09:46; Status DC Ketorolac Tromethamine (Toradol 30mg Vial) 30 mg 1X ONCE IV Last administered on 10/29/19at 09:44; Start 10/29/19 at 09:45; Stop 10/29/19 at 09:46; Status DC Ondansetron HCl (Zofran) 4 mg 1X ONCE IV Last administered on 10/29/19at 09:44; Start 10/29/19 at 09:45; Stop 10/29/19 at 09:46; Status DC Ondansetron HCl (Zofran) 4 mg STK-MED ONCE .ROUTE ; Start 10/29/19 at 09:42; Stop 10/29/19 at 09:42; Status DC Ketorolac Tromethamine (Toradol 30mg Vial) 30 mg STK-MED ONCE .ROUTE ; Start 10/29/19 at 09:42; Stop 10/29/19 at 09:42; Status DC Fentanyl Citrate (Fentanyl 2ml Vial) 100 mcg STK-MED ONCE .ROUTE ; Start 10/29/19 at 09:42; Stop 10/29/19 at 09:42; Status DC Iohexol (Omnipaque 300 Mg/ml) 75 ml 1X ONCE IV Last administered on 10/29/19at 10:38; Start 10/29/19 at 10:15; Stop 10/29/19 at 10:21; Status DC Potassium Chloride (Klor-Con) 40 meq 1X ONCE PO Last administered on 10/29/19at 10:53; Start 10/29/19 at 10:30; Stop 10/29/19 at 10:36; Status DC Potassium Chloride/Water 100 ml @ 50 mls/hr 1X ONCE IV Last administered on 10/29/19at 10:53; Start 10/29/19 at 10:45; Stop 10/29/19 at 12:44; Status DC Sodium Chloride 500 ml @ 100 mls/hr 1X ONCE IV Last administered on 10/29/19at 10:57; Start 10/29/19 at 11:15; Stop 10/29/19 at 16:14; Status DC Ondansetron HCl (Zofran) 4 mg PRN Q8HRS PRN IV NAUSEA/VOMITING; Start 10/29/19 at 12:00; Stop 10/30/19 at 11:59; Status DC Fentanyl Citrate (Fentanyl 2ml Vial) 50 mcg PRN Q1HR PRN IV PAIN Last administered on 10/29/19at 19:45; Start 10/29/19 at 12:00; Stop 10/30/19 at 11:59; Status DC Potassium Chloride 20 meq/ Sodium Chloride 1,010 ml @ 125 mls/hr Q8H5M IV ; Start 10/29/19 at 12:10; Stop 10/30/19 at 12:09; Status UNV Acetaminophen (Tylenol) 650 mg PRN Q4HRS PRN PO FEVER > 100.3'F; Start 10/29/19 at 12:00; Stop 10/30/19 at 11:59; Status DC Metronidazole 100 ml @ 100 mls/hr 1X ONCE IV Last administered on 10/29/19at 12:00; Start 10/29/19 at 12:00; Stop 10/29/19 at 12:59; Status DC Ciprofloxacin (Cipro) 500 mg 1X ONCE PO Last administered on 10/29/19at 12:28; Start 10/29/19 at 12:00; Stop 10/29/19 at 12:03; Status DC Potassium Chloride/Sodium Chloride 1,000 ml @ 125 mls/hr Q8H IV Last administered on 10/29/19at 14:59; Start 10/29/19 at 12:15; Stop 10/29/19 at 20:14; Status DC Ondansetron HCl (Zofran) 4 mg PRN Q4HRS PRN IV NAUSEA/VOMITING; Start 10/29/19 at 12:15 Zolpidem Tartrate (Ambien) 5 mg PRN QHS PRN PO INSOMNIA Last administered on 10/29/19at 20:54; Start 10/29/19 at 12:15 Acetaminophen (Tylenol) 650 mg PRN Q4HRS PRN PO TEMP OVER 100.4F OR MILD PAIN; Start 10/29/19 at 12:15 Diphenhydramine HCl (Benadryl) 25 mg PRN Q4HRS PRN IVP ITCHING; Start 10/29/19 at 12:15 Docusate Sodium (Colace) 100 mg PRN BID PRN PO HARD STOOLS; Start 10/29/19 at 12:15 Albuterol Sulfate (Ventolin Neb Soln) 2.5 mg PRN Q4HRS PRN NEB SHORTNESS OF BREATH; Start 10/29/19 at 12:15 Guaifenesin (Robitussin) 200 mg PRN Q4HRS PRN PO COUGH; Start 10/29/19 at 12:15 Lorazepam (Ativan) 0.5 mg PRN Q4HRS PRN PO ANXIETY / AGITATION Last administered on 10/29/19at 19:45; Start 10/29/19 at 12:15 Enoxaparin Sodium (Lovenox 40mg Syringe) 40 mg Q24H SQ Last administered on 10/30/19at 13:35; Start 10/29/19 at 13:00 Levofloxacin/ Dextrose 100 ml @ 100 mls/hr Q24H IV Last administered on 10/30/19at 15:00; Start 10/29/19 at 15:00 Azithromycin 500 mg/Sodium Chloride 250 ml @ 250 mls/hr Q24H IV Last administered on 10/29/19at 15:43; Start 10/29/19 at 16:00 Dicyclomine HCl (Bentyl) 10 mg PRN QID PRN PO GI SYMPTOMS Last administered on 10/30/19at 10:40; Start 10/29/19 at 16:00 Fentanyl Citrate (Fentanyl 2ml Vial) 100 mcg PRN Q1HR PRN IVP PAIN Last administered on 10/29/19at 20:53; Start 10/29/19 at 20:15; Stop 10/29/19 at 22:11; Status DC Fentanyl Citrate (Fentanyl 2ml Vial) 100 mcg PRN Q2HR PRN IVP SEVERE PAIN 7-10 Last administered on 10/30/19at 13:39; Start 10/29/19 at 22:15 Ketorolac Tromethamine (Toradol 30mg Vial) 30 mg 1X ONCE IVP Last administered on 10/29/19at 22:23; Start 10/29/19 at 22:30; Stop 10/29/19 at 22:31; Status DC Ketorolac Tromethamine (Toradol 30mg Vial) 30 mg 1X ONCE IVP Last administered on 10/30/19at 11:10; Start 10/30/19 at 11:15; Stop 10/30/19 at 11:16; Status DC Ketorolac Tromethamine (Toradol 15mg Vial) 15 mg PRN Q8HRS PRN IVP PAIN; Start 10/30/19 at 11:15; Stop 11/04/19 at 11:14 Vitals/I & O Vital Sign - Last 24 Hours 10/29/19 10/29/19 10/29/19 10/30/19 19:00 20:04 23:00 03:36 Temp 98.8 98.3 97.6 98.8 98.3 97.6 Pulse 85 94 87 Resp 20 18 18 B/P (MAP) 142/88 (106) 155/102 (119) 146/92 (110) Pulse Ox 98 100 100 O2 Delivery Room Air Room Air Room Air Room Air 10/30/19 10/30/19 10/30/19 10/30/19 07:15 08:00 08:33 09:12 Temp 97.6 97.6 Pulse 101 Resp 18 B/P (MAP) 155/105 (122) Pulse Ox 98 98 98 O2 Delivery Room Air Room Air Room Air Room Air 10/30/19 10/30/19 10/30/19 10/30/19 10:41 11:15 11:20 13:39 Temp 97.2 97.2 Pulse 95 Resp 16 B/P (MAP) 139/95 (110) Pulse Ox 98 98 98 98 O2 Delivery Room Air Room Air Room Air Room Air 10/30/19 10/30/19 14:14 15:02 Temp 97.8 97.8 Pulse 64 Resp 18 B/P (MAP) 132/91 (105) Pulse Ox 98 99 O2 Delivery Room Air Room Air Intake and Output 10/29/19 10/29/19 10/30/19 15:00 23:00 07:00 Intake Total 10 ml Balance 10 ml Hemodynamically unstable?: No Is patient in severe pain?: No Is NPO status required?: No JERROD SANFORD MD October 30, 2019 18:52
[2019-10-30 19:00] VITALS: BP 167/95
[2019-10-30] MEDS: KETOROLAC 15 MG/ML VIAL. IVP PRN (19:20)
[2019-10-30] MEDS: AZITHROMYCIN 500 MG in IV NORMAL SALINE 250ML 250 ML IV SCH (20:00)
[2019-10-30] MEDS: ZOLPIDEM 5 MG TABLET. PO PRN (21:28)
[2019-10-30 23:00] VITALS: BP 156/91
[2019-10-31] MEDS: LORazepam 0.5 MG TABLET PO PRN (00:23)
[2019-10-31] MEDS: fentaNYL PF VIAL 100 MCG/2 ML VIAL IVP PRN ×3 (00:31→12:20)
[2019-10-31 03:01] VITALS: BP 152/86
[2019-10-31 05:15] LABS: ALBUMIN 2.4 g/dL (3.4-5.0); ALBUMIN/GLOBULIN RATIO 0.5 (1.0-1.7); CALCIUM 7.7 mg/dL (8.5-10.1); CREATININE 0.8 mg/dL (0.6-1.0); GFR 97.1; POTASSIUM 3.5 mmol/L (3.5-5.1); TOTAL BILIRUBIN 0.3 mg/dL (0.2-1.0); TOTAL PROTEIN 7.1 g/dL (6.4-8.2)
[2019-10-31 07:14] VITALS: BP 149/91
[2019-10-31 08:38] LABS: BILIRUBIN,URINE NEGATIVE (NEG); CLARITY,URINE CLEAR; COLOR,URINE YELLOW; NITRITE,URINE NEGATIVE (NEG); PROTEIN,URINE 30 mg/dL (NEG-TRACE); UROBILINOGEN,URINE 0.2 mg/dL (0.2 mg/dL)
[2019-10-31] MEDS: KETOROLAC 15 MG/ML VIAL. IVP PRN (08:55)
[2019-10-31 08:59] LABS: BACTERIA,URINE FEW /HPF (0-FEW); SQUAMOUS EPITHELIAL CELL,UR MANY /LPF
--- NOTE | 2019-10-31 10:35 | PDOC ---
PROGRESS NOTES Chief Complaint Chief Complaint impression ==== Abdomiinal pain secondary to acute colitis, etiology undetermined at the present time but likely infectious in nature CT appearance does not suggest an obstruction and is favored on account of an enterocolitis either infectious or inflammatory. ///correlation for a known his tory of inflammatory bowel disease. Leukocytosis improved Moderate dehydration improved Iron deficiency NORMOCYTIC ANEMIA Hypothyroidism Plan: continue antibiotics follow gi recommendations symptomatic relief of symptoms reassess in the am await cultures D/W RN History of Present Illness History of Present Illness No acute events reported overnight, case discussed with nursing staff patient in no acute distress no complaints during my visit Vitals Vitals Vital Signs Date Time Temp Pulse Resp B/P (MAP) Pulse Ox O2 Delivery O2 Flow Rate FiO2 10/31/19 07:14 98.1 72 16 149/91 (110) 98 Room Air 98.1 Physical Exam Physical Exam GEN.: No apparent distress. Alert and oriented. HEENT: Head is normocephalic, atraumatic NECK: Supple. LUNGS: Clear to auscultation. HEART: RRR, S1, S2 present. Peripheral pulses intact ABDOMEN: Soft, nontender. Positive bowel sounds. EXTREMITIES: Without any cyanosis. NEUROLOGIC: Normal speech, normal tone PSYCHIATRIC: Normal affect, normal mood. SKIN: No ulcerations General: Alert, Oriented X3, Cooperative, No acute distress Abdomen: Soft, No tenderness Extremities: No cyanosis Labs LABS SOURCE: BLOOD ENTR: 10/29/19-[address]: JERROD SANFORD MD SPDESC: NON,STAFF STEPHEN FRY MD ORDERED: BCULT Procedure Result BLOOD CULTURE Preliminary NO GROWTH AFTER 1 DAY COMMENTS: Has specimen been collected/obtained? Y Procedure Result FECAL WBC,GRAM STAIN Final WBCS FEW COMMENTS LIQUID STOOL 1. Automated exposure control 2. Adjustment of the mA and/or kV according to patient size 3. Use of iterative reconstruction technique. Findings: Unremarkable lower chest. The liver is somewhat prominent in size but no different from the [address] evidence for acute cholecystitis. Unchanged caliber of the common bile duct. Unremarkable pancreas. Within normal limits spleen and adrenal glands. Symmetric kidney size and enhancement. No hydroureteronephrosis. Circumferential wall thickening of the urinary bladder though potentially in part related to underdistention. Within normal limits uterus for patient age. No concerning adnexal abnormality. Mostly collapsed colon. Some incompletely formed stool within the proximal colon suggesting a diarrheal state. Mild wall thickening of the proximal colon. The appendix is not well-visualized. Mild small bowel dilatation such as along the central aspect of the abdomen extending into the upper pelvis. No discrete transition point to suggest a mechanical obstruction however the more distal bowel exhibits mild wall thickening with surrounding inflammatory changes through the terminal ileum such as seen on axial image 77 series 2. No pneumatosis or perforation. Unremarkable stomach noting incomplete distention. Unremarkable vasculature. Small amount of fluid within the pelvis. No lymphadenopathy. No free air. Unremarkable body wall soft tissues. Asymmetric periarticular sclerosis around the right SI joint. Impression: Segments of mild small bowel dilatation in addition to regions of small bowel wall thickening and surrounding inflammatory changes such as at the anterior pelvis on image 77 series 2. Mild colonic inflammatory changes as well. The appearance does not suggest an obstruction and is favored on account of an enterocolitis either infectious or inflammatory. Recommend correlation for a known history of inflammatory bowel disease. Note is also made that there is asymmetric manifestations of sacroiliitis on the right further raising the question of inflammatory bowel disease. Electronically signed by: OMAR TEJADA MD (10/29/2019 11:10 AM) [id number] DICTATED and SIGNED BY: OMAR TEJADA MD DATE: 10/29/19 1110 Laboratory Tests Test 10/31/19 04:15 10/31/19 08:10 Sodium Level 138 mmol/L (136-145) Potassium Level 3.5 mmol/L (3.5-5.1) Chloride Level 103 mmol/L (98-107) Carbon Dioxide Level 27 mmol/L (21-32) Anion Gap 8 (6-14) Blood Urea Nitrogen 11 mg/dL (7-20) Creatinine 0.8 mg/dL (0.6-1.0) Estimated GFR (Cockcroft-Gault) 97.1 BUN/Creatinine Ratio 14 (6-20) Glucose Level 77 mg/dL (70-99) Calcium Level 7.7 mg/dL (8.5-10.1) Total Bilirubin 0.3 mg/dL (0.2-1.0) Aspartate Amino Transf (AST/SGOT) 11 U/L (15-37) Alanine Aminotransferase (ALT/SGPT) 17 U/L (14-59) Alkaline Phosphatase 81 U/L (46-116) Total Protein 7.1 g/dL (6.4-8.2) Albumin 2.4 g/dL (3.4-5.0) Albumin/Globulin Ratio 0.5 (1.0-1.7) Urine Collection Type Unknown Urine Color Yellow Urine Clarity Clear Urine pH 6.0 (<5.0-8.0) Urine Specific [place] 1.025 (1.000-1.030) Urine Protein 30 mg/dL (NEG-TRACE) Urine Glucose (UA) Negative mg/dL (NEG) Urine Ketones (Stick) >=80 mg/dL (NEG) Urine Blood Moderate (NEG) Urine Nitrite Negative (NEG) Urine Bilirubin Negative (NEG) Urine Urobilinogen Dipstick 0.2 mg/dL (0.2 mg/dL) Urine Leukocyte Esterase Negative (NEG) Urine RBC 11-20 /HPF (0-2) Urine WBC 1-4 /HPF (0-4) Urine Squamous Epithelial Cells Many /LPF Urine Bacteria Few /HPF (0-FEW) Urine Mucus Marked /LPF Assessment and Plan Assessmemt and Plan Problems Medical Problems: (1) Diarrhea Status: Acute (2) Hypokalemia Status: Acute (3) Pancolitis Status: Acute GEN.: No apparent distress. Alert and oriented. HEENT: Head is normocephalic, atraumatic NECK: Supple. LUNGS: Clear to auscultation. HEART: RRR, S1, S2 present. Peripheral pulses intact ABDOMEN: Soft, nontender. Positive bowel sounds. EXTREMITIES: Without any cyanosis. NEUROLOGIC: Normal speech, normal tone PSYCHIATRIC: Normal affect, normal mood. SKIN: No ulcerations Comment Review of Relevant I have reviewed the following items liz (where applicable) has been applied. Labs Laboratory Tests Test 10/29/19 15:25 10/30/19 04:30 10/31/19 04:15 10/31/19 08:10 Stool Campylobacter PCR Negative (NEGATIVE) Stool E. coli Shiga Toxins (PCR) Negative (NEGATIVE) Stool Salmonella PCR Negative (NEGATIVE) Stool Shigella PCR Negative (NEGATIVE) Clostridium difficile Toxin (PCR) Negative (NEGATIVE) White Blood Count 11.4 x10^3/uL (4.0-11.0) Red Blood Count 3.94 x10^6/uL (3.50-5.40) Hemoglobin 10.9 g/dL (12.0-15.5) Hematocrit 33.4 % (36.0-47.0) Mean Corpuscular Volume 85 fL (79-100) Mean Corpuscular Hemoglobin 28 pg (25-35) Mean Corpuscular Hemoglobin Concent 33 g/dL (31-37) Red Cell Distribution Width 15.7 % (11.5-14.5) Platelet Count 293 x10^3/uL (140-400) Neutrophils (%) (Auto) 82 % (31-73) Lymphocytes (%) (Auto) 13 % (24-48) Monocytes (%) (Auto) 4 % (0-9) Eosinophils (%) (Auto) 0 % (0-3) Basophils (%) (Auto) 0 % (0-3) Neutrophils # (Auto) 9.4 x10^3/uL (1.8-7.7) Lymphocytes # (Auto) 1.5 x10^3/uL (1.0-4.8) Monocytes # (Auto) 0.5 x10^3/uL (0.0-1.1) Eosinophils # (Auto) 0.0 x10^3/uL (0.0-0.7) Basophils # (Auto) 0.0 x10^3/uL (0.0-0.2) Sodium Level 139 mmol/L (136-145) 138 mmol/L (136-145) Potassium Level 3.8 mmol/L (3.5-5.1) 3.5 mmol/L (3.5-5.1) Chloride Level 105 mmol/L (98-107) 103 mmol/L (98-107) Carbon Dioxide Level 24 mmol/L (21-32) 27 mmol/L (21-32) Anion Gap 10 (6-14) 8 (6-14) Blood Urea Nitrogen 12 mg/dL (7-20) 11 mg/dL (7-20) Creatinine 1.0 mg/dL (0.6-1.0) 0.8 mg/dL (0.6-1.0) Estimated GFR (Cockcroft-Gault) 75.1 97.1 Glucose Level 89 mg/dL (70-99) 77 mg/dL (70-99) Calcium Level 7.7 mg/dL (8.5-10.1) 7.7 mg/dL (8.5-10.1) Thyroid Stimulating Hormone (TSH) 6.181 uIU/mL (0.358-3.74) Free Thyroxine 1.39 ng/dL (0.76-1.46) Free Triiodothyronine (T3) pg/mL 1.00 pg/mL (2.18-3.98) BUN/Creatinine Ratio 14 (6-20) Total Bilirubin 0.3 mg/dL (0.2-1.0) Aspartate Amino Transf (AST/SGOT) 11 U/L (15-37) Alanine Aminotransferase (ALT/SGPT) 17 U/L (14-59) Alkaline Phosphatase 81 U/L (46-116) Total Protein 7.1 g/dL (6.4-8.2) Albumin 2.4 g/dL (3.4-5.0) Albumin/Globulin Ratio 0.5 (1.0-1.7) Urine Collection Type Unknown Urine Color Yellow Urine Clarity Clear Urine pH 6.0 (<5.0-8.0) Urine Specific [place] 1.025 (1.000-1.030) Urine Protein 30 mg/dL (NEG-TRACE) Urine Glucose (UA) Negative mg/dL (NEG) Urine Ketones (Stick) >=80 mg/dL (NEG) Urine Blood Moderate (NEG) Urine Nitrite Negative (NEG) Urine Bilirubin Negative (NEG) Urine Urobilinogen Dipstick 0.2 mg/dL (0.2 mg/dL) Urine Leukocyte Esterase Negative (NEG) Urine RBC 11-20 /HPF (0-2) Urine WBC 1-4 /HPF (0-4) Urine Squamous Epithelial Cells Many /LPF Urine Bacteria Few /HPF (0-FEW) Urine Mucus Marked /LPF Laboratory Tests Test 10/31/19 04:15 10/31/19 08:10 Sodium Level 138 mmol/L (136-145) Potassium Level 3.5 mmol/L (3.5-5.1) Chloride Level 103 mmol/L (98-107) Carbon Dioxide Level 27 mmol/L (21-32) Anion Gap 8 (6-14) Blood Urea Nitrogen 11 mg/dL (7-20) Creatinine 0.8 mg/dL (0.6-1.0) Estimated GFR (Cockcroft-Gault) 97.1 BUN/Creatinine Ratio 14 (6-20) Glucose Level 77 mg/dL (70-99) Calcium Level 7.7 mg/dL (8.5-10.1) Total Bilirubin 0.3 mg/dL (0.2-1.0) Aspartate Amino Transf (AST/SGOT) 11 U/L (15-37) Alanine Aminotransferase (ALT/SGPT) 17 U/L (14-59) Alkaline Phosphatase 81 U/L (46-116) Total Protein 7.1 g/dL (6.4-8.2) Albumin 2.4 g/dL (3.4-5.0) Albumin/Globulin Ratio 0.5 (1.0-1.7) Urine Collection Type Unknown Urine Color Yellow Urine Clarity Clear Urine pH 6.0 (<5.0-8.0) Urine Specific [place] 1.025 (1.000-1.030) Urine Protein 30 mg/dL (NEG-TRACE) Urine Glucose (UA) Negative mg/dL (NEG) Urine Ketones (Stick) >=80 mg/dL (NEG) Urine Blood Moderate (NEG) Urine Nitrite Negative (NEG) Urine Bilirubin Negative (NEG) Urine Urobilinogen Dipstick 0.2 mg/dL (0.2 mg/dL) Urine Leukocyte Esterase Negative (NEG) Urine RBC 11-20 /HPF (0-2) Urine WBC 1-4 /HPF (0-4) Urine Squamous Epithelial Cells Many /LPF Urine Bacteria Few /HPF (0-FEW) Urine Mucus Marked /LPF Microbiology 10/29/19 Fecal Leukocyte Stain - Final, Complete 10/29/19 Blood Culture - Preliminary, Resulted NO GROWTH AFTER 1 DAY Medications Current Medications Sodium Chloride 1,000 ml @ 1,000 mls/hr 1X ONCE IV Last administered on 10/29/19at 09:45; Start 10/29/19 at 09:45; Stop 10/29/19 at 10:44; Status DC Fentanyl Citrate (Fentanyl 2ml Vial) 50 mcg 1X ONCE IV Last administered on 10/29/19at 09:45; Start 10/29/19 at 09:45; Stop 10/29/19 at 09:46; Status DC Ketorolac Tromethamine (Toradol 30mg Vial) 30 mg 1X ONCE IV Last administered on 10/29/19at 09:44; Start 10/29/19 at 09:45; Stop 10/29/19 at 09:46; Status DC Ondansetron HCl (Zofran) 4 mg 1X ONCE IV Last administered on 10/29/19at 09:44; Start 10/29/19 at 09:45; Stop 10/29/19 at 09:46; Status DC Ondansetron HCl (Zofran) 4 mg STK-MED ONCE .ROUTE ; Start 10/29/19 at 09:42; Stop 10/29/19 at 09:42; Status DC Ketorolac Tromethamine (Toradol 30mg Vial) 30 mg STK-MED ONCE .ROUTE ; Start 10/29/19 at 09:42; Stop 10/29/19 at 09:42; Status DC Fentanyl Citrate (Fentanyl 2ml Vial) 100 mcg STK-MED ONCE .ROUTE ; Start 10/29/19 at 09:42; Stop 10/29/19 at 09:42; Status DC Iohexol (Omnipaque 300 Mg/ml) 75 ml 1X ONCE IV Last administered on 10/29/19at 10:38; Start 10/29/19 at 10:15; Stop 10/29/19 at 10:21; Status DC Potassium Chloride (Klor-Con) 40 meq 1X ONCE PO Last administered on 10/29/19at 10:53; Start 10/29/19 at 10:30; Stop 10/29/19 at 10:36; Status DC Potassium Chloride/Water 100 ml @ 50 mls/hr 1X ONCE IV Last administered on 10/29/19at 10:53; Start 10/29/19 at 10:45; Stop 10/29/19 at 12:44; Status DC Sodium Chloride 500 ml @ 100 mls/hr 1X ONCE IV Last administered on 10/29/19at 10:57; Start 10/29/19 at 11:15; Stop 10/29/19 at 16:14; Status DC Ondansetron HCl (Zofran) 4 mg PRN Q8HRS PRN IV NAUSEA/VOMITING; Start 10/29/19 at 12:00; Stop 10/30/19 at 11:59; Status DC Fentanyl Citrate (Fentanyl 2ml Vial) 50 mcg PRN Q1HR PRN IV PAIN Last administered on 10/29/19at 19:45; Start 10/29/19 at 12:00; Stop 10/30/19 at 11:59; Status DC Potassium Chloride 20 meq/ Sodium Chloride 1,010 ml @ 125 mls/hr Q8H5M IV ; Start 10/29/19 at 12:10; Stop 10/30/19 at 12:09; Status UNV Acetaminophen (Tylenol) 650 mg PRN Q4HRS PRN PO FEVER > 100.3'F; Start 10/29/19 at 12:00; Stop 10/30/19 at 11:59; Status DC Metronidazole 100 ml @ 100 mls/hr 1X ONCE IV Last administered on 10/29/19at 12:00; Start 10/29/19 at 12:00; Stop 10/29/19 at 12:59; Status DC Ciprofloxacin (Cipro) 500 mg 1X ONCE PO Last administered on 10/29/19at 12:28; Start 10/29/19 at 12:00; Stop 10/29/19 at 12:03; Status DC Potassium Chloride/Sodium Chloride 1,000 ml @ 125 mls/hr Q8H IV Last administered on 10/29/19at 14:59; Start 10/29/19 at 12:15; Stop 10/29/19 at 20:14; Status DC Ondansetron HCl (Zofran) 4 mg PRN Q4HRS PRN IV NAUSEA/VOMITING; Start 10/29/19 at 12:15 Zolpidem Tartrate (Ambien) 5 mg PRN QHS PRN PO INSOMNIA Last administered on 10/30/19at 21:28; Start 10/29/19 at 12:15 Acetaminophen (Tylenol) 650 mg PRN Q4HRS PRN PO TEMP OVER 100.4F OR MILD PAIN; Start 10/29/19 at 12:15 Diphenhydramine HCl (Benadryl) 25 mg PRN Q4HRS PRN IVP ITCHING; Start 10/29/19 at 12:15 Docusate Sodium (Colace) 100 mg PRN BID PRN PO HARD STOOLS; Start 10/29/19 at 12:15 Albuterol Sulfate (Ventolin Neb Soln) 2.5 mg PRN Q4HRS PRN NEB SHORTNESS OF BREATH; Start 10/29/19 at 12:15 Guaifenesin (Robitussin) 200 mg PRN Q4HRS PRN PO COUGH; Start 10/29/19 at 12:15 Lorazepam (Ativan) 0.5 mg PRN Q4HRS PRN PO ANXIETY / AGITATION Last administered on 10/31/19at 00:23; Start 10/29/19 at 12:15 Enoxaparin Sodium (Lovenox 40mg Syringe) 40 mg Q24H SQ Last administered on 10/30/19at 13:35; Start 10/29/19 at 13:00 Levofloxacin/ Dextrose 100 ml @ 100 mls/hr Q24H IV Last administered on 10/30/19at 15:00; Start 10/29/19 at 15:00 Azithromycin 500 mg/Sodium Chloride 250 ml @ 250 mls/hr Q24H IV Last administered on 10/30/19at 20:00; Start 10/29/19 at 16:00 Dicyclomine HCl (Bentyl) 10 mg PRN QID PRN PO GI SYMPTOMS Last administered on 10/30/19at 10:40; Start 10/29/19 at 16:00 Fentanyl Citrate (Fentanyl 2ml Vial) 100 mcg PRN Q1HR PRN IVP PAIN Last admi nistered on 10/29/19at 20:53; Start 10/29/19 at 20:15; Stop 10/29/19 at 22:11; Status DC Fentanyl Citrate (Fentanyl 2ml Vial) 100 mcg PRN Q2HR PRN IVP SEVERE PAIN 7-10 Last administered on 10/31/19at 06:36; Start 10/29/19 at 22:15 Ketorolac Tromethamine (Toradol 30mg Vial) 30 mg 1X ONCE IVP Last administered on 10/29/19at 22:23; Start 10/29/19 at 22:30; Stop 10/29/19 at 22:31; Status DC Ketorolac Tromethamine (Toradol 30mg Vial) 30 mg 1X ONCE IVP Last administered on 10/30/19at 11:10; Start 10/30/19 at 11:15; Stop 10/30/19 at 11:16; Status DC Ketorolac Tromethamine (Toradol 15mg Vial) 15 mg PRN Q8HRS PRN IVP PAIN Last administered on 10/31/19at 08:55; Start 10/30/19 at 11:15; Stop 11/04/19 at 11:14 Vitals/I & O Vital Sign - Last 24 Hours 10/30/19 10/30/19 10/30/19 10/30/19 10:41 11:15 11:20 13:39 Temp 97.2 97.2 Pulse 95 Resp 16 B/P (MAP) 139/95 (110) Pulse Ox 98 98 98 98 O2 Delivery Room Air Room Air Room Air Room Air 10/30/19 10/30/19 10/30/19 10/30/19 14:14 15:02 19:00 19:20 Temp 97.8 98.1 97.8 98.1 Pulse 64 70 Resp 18 20 B/P (MAP) 132/91 (105) 167/95 (119) Pulse Ox 98 99 97 99 O2 Delivery Room Air Room Air Room Air Room Air 10/30/19 10/30/19 10/30/19 10/30/19 19:45 19:54 21:28 21:53 Pulse Ox 99 99 99 O2 Delivery Room Air Room Air Room Air Room Air 10/30/19 10/31/19 10/31/19 10/31/19 23:00 00:31 01:01 03:01 Temp 98.3 97.9 98.3 97.9 Pulse 70 73 Resp 18 18 B/P (MAP) 156/91 (112) 152/86 (108) Pulse Ox 97 97 97 96 O2 Delivery Room Air Room Air Room Air Room Air 10/31/19 10/31/19 10/31/19 06:36 07:08 07:14 Temp 98.1 98.1 Pulse 72 Resp 16 B/P (MAP) 149/91 (110) Pulse Ox 96 96 98 O2 Delivery Room Air Room Air Room Air Intake and Output 10/30/19 10/30/19 10/31/19 15:00 23:00 07:00 Intake Total 50 ml 50 ml Balance 50 ml 50 ml Hemodynamically unstable?: No Is patient in severe pain?: No Is NPO status required?: No ANICETO BROWN MD October 31, 2019 10:35
[2019-10-31 11:00] VITALS: BP 162/99
[2019-10-31] MEDS: ENOXAPARIN 40 MG/0.4 ML SYRINGE. SQ SCH (12:21)
--- NOTE | 2019-10-31 12:21 | PDOC ---
G I PROGRESS NOTE Subjective Diarrhea continues to improve. Tolerating applesauce and such. Still needing fentanyl for pain. Physical Exam Lungs clear. RRR Abdomen soft, mild diffuse tenderness, but much improved from admission. Review of Relevant I have reviewed the following items liz (where applicable) has been applied. Labs Laboratory Tests Test 10/29/19 15:25 10/30/19 04:30 10/31/19 04:15 10/31/19 08:10 Stool Campylobacter PCR Negative (NEGATIVE) Stool E. coli Shiga Toxins (PCR) Negative (NEGATIVE) Stool Salmonella PCR Negative (NEGATIVE) Stool Shigella PCR Negative (NEGATIVE) Clostridium difficile Toxin (PCR) Negative (NEGATIVE) White Blood Count 11.4 x10^3/uL (4.0-11.0) Red Blood Count 3.94 x10^6/uL (3.50-5.40) Hemoglobin 10.9 g/dL (12.0-15.5) Hematocrit 33.4 % (36.0-47.0) Mean Corpuscular Volume 85 fL (79-100) Mean Corpuscular Hemoglobin 28 pg (25-35) Mean Corpuscular Hemoglobin Concent 33 g/dL (31-37) Red Cell Distribution Width 15.7 % (11.5-14.5) Platelet Count 293 x10^3/uL (140-400) Neutrophils (%) (Auto) 82 % (31-73) Lymphocytes (%) (Auto) 13 % (24-48) Monocytes (%) (Auto) 4 % (0-9) Eosinophils (%) (Auto) 0 % (0-3) Basophils (%) (Auto) 0 % (0-3) Neutrophils # (Auto) 9.4 x10^3/uL (1.8-7.7) Lymphocytes # (Auto) 1.5 x10^3/uL (1.0-4.8) Monocytes # (Auto) 0.5 x10^3/uL (0.0-1.1) Eosinophils # (Auto) 0.0 x10^3/uL (0.0-0.7) Basophils # (Auto) 0.0 x10^3/uL (0.0-0.2) Sodium Level 139 mmol/L (136-145) 138 mmol/L (136-145) Potassium Level 3.8 mmol/L (3.5-5.1) 3.5 mmol/L (3.5-5.1) Chloride Level 105 mmol/L (98-107) 103 mmol/L (98-107) Carbon Dioxide Level 24 mmol/L (21-32) 27 mmol/L (21-32) Anion Gap 10 (6-14) 8 (6-14) Blood Urea Nitrogen 12 mg/dL (7-20) 11 mg/dL (7-20) Creatinine 1.0 mg/dL (0.6-1.0) 0.8 mg/dL (0.6-1.0) Estimated GFR (Cockcroft-Gault) 75.1 97.1 Glucose Level 89 mg/dL (70-99) 77 mg/dL (70-99) Calcium Level 7.7 mg/dL (8.5-10.1) 7.7 mg/dL (8.5-10.1) Thyroid Stimulating Hormone (TSH) 6.181 uIU/mL (0.358-3.74) Free Thyroxine 1.39 ng/dL (0.76-1.46) Free Triiodothyronine (T3) pg/mL 1.00 pg/mL (2.18-3.98) BUN/Creatinine Ratio 14 (6-20) Total Bilirubin 0.3 mg/dL (0.2-1.0) Aspartate Amino Transf (AST/SGOT) 11 U/L (15-37) Alanine Aminotransferase (ALT/SGPT) 17 U/L (14-59) Alkaline Phosphatase 81 U/L (46-116) Total Protein 7.1 g/dL (6.4-8.2) Albumin 2.4 g/dL (3.4-5.0) Albumin/Globulin Ratio 0.5 (1.0-1.7) Urine Collection Type Unknown Urine Color Yellow Urine Clarity Clear Urine pH 6.0 (<5.0-8.0) Urine Specific [place] 1.025 (1.000-1.030) Urine Protein 30 mg/dL (NEG-TRACE) Urine Glucose (UA) Negative mg/dL (NEG) Urine Ketones (Stick) >=80 mg/dL (NEG) Urine Blood Moderate (NEG) Urine Nitrite Negative (NEG) Urine Bilirubin Negative (NEG) Urine Urobilinogen Dipstick 0.2 mg/dL (0.2 mg/dL) Urine Leukocyte Esterase Negative (NEG) Urine RBC 11-20 /HPF (0-2) Urine WBC 1-4 /HPF (0-4) Urine Squamous Epithelial Cells Many /LPF Urine Bacteria Few /HPF (0-FEW) Urine Mucus Marked /LPF Laboratory Tests Test 10/31/19 04:15 10/31/19 08:10 Sodium Level 138 mmol/L (136-145) Potassium Level 3.5 mmol/L (3.5-5.1) Chloride Level 103 mmol/L (98-107) Carbon Dioxide Level 27 mmol/L (21-32) Anion Gap 8 (6-14) Blood Urea Nitrogen 11 mg/dL (7-20) Creatinine 0.8 mg/dL (0.6-1.0) Estimated GFR (Cockcroft-Gault) 97.1 BUN/Creatinine Ratio 14 (6-20) Glucose Level 77 mg/dL (70-99) Calcium Level 7.7 mg/dL (8.5-10.1) Total Bilirubin 0.3 mg/dL (0.2-1.0) Aspartate Amino Transf (AST/SGOT) 11 U/L (15-37) Alanine Aminotransferase (ALT/SGPT) 17 U/L (14-59) Alkaline Phosphatase 81 U/L (46-116) Total Protein 7.1 g/dL (6.4-8.2) Albumin 2.4 g/dL (3.4-5.0) Albumin/Globulin Ratio 0.5 (1.0-1.7) Urine Collection Type Unknown Urine Color Yellow Urine Clarity Clear Urine pH 6.0 (<5.0-8.0) Urine Specific [place] 1.025 (1.000-1.030) Urine Protein 30 mg/dL (NEG-TRACE) Urine Glucose (UA) Negative mg/dL (NEG) Urine Ketones (Stick) >=80 mg/dL (NEG) Urine Blood Moderate (NEG) Urine Nitrite Negative (NEG) Urine Bilirubin Negative (NEG) Urine Urobilinogen Dipstick 0.2 mg/dL (0.2 mg/dL) Urine Leukocyte Esterase Negative (NEG) Urine RBC 11-20 /HPF (0-2) Urine WBC 1-4 /HPF (0-4) Urine Squamous Epithelial Cells Many /LPF Urine Bacteria Few /HPF (0-FEW) Urine Mucus Marked /LPF Microbiology 10/29/19 Fecal Leukocyte Stain - Final, Complete (none seen). 10/29/19 Blood Culture - Preliminary, Resulted NO GROWTH AFTER 1 DAY Multi-pathogen PCR negative (was not aware this was available here). Vitals/I & O Vital Sign - Last 24 Hours 10/30/19 10/30/19 10/30/19 10/30/19 13:39 14:14 15:02 19:00 Temp 97.8 98.1 97.8 98.1 Pulse 64 70 Resp 18 20 B/P (MAP) 132/91 (105) 167/95 (119) Pulse Ox 98 98 99 97 O2 Delivery Room Air Room Air Room Air Room Air 10/30/19 10/30/19 10/30/19 10/30/19 19:20 19:45 19:54 21:28 Pulse Ox 99 99 99 O2 Delivery Room Air Room Air Room Air Room Air 10/30/19 10/30/19 10/31/19 10/31/19 21:53 23:00 00:31 01:01 Temp 98.3 98.3 Pulse 70 Resp 18 B/P (MAP) 156/91 (112) Pulse Ox 99 97 97 97 O2 Delivery Room Air Room Air Room Air Room Air 10/31/19 10/31/19 10/31/19 10/31/19 03:01 06:36 07:08 07:14 Temp 97.9 98.1 97.9 98.1 Pulse 73 72 Resp 18 16 B/P (MAP) 152/86 (108) 149/91 (110) Pulse Ox 96 96 96 98 O2 Delivery Room Air Room Air Room Air Room Air 10/31/19 10/31/19 08:00 11:00 Temp 97.9 97.9 Pulse 75 Resp 18 B/P (MAP) 162/99 (120) Pulse Ox 100 O2 Delivery Room Air Room Air Intake and Output 10/30/19 10/30/19 10/31/19 15:00 23:00 07:00 Intake Total 50 ml 50 ml Balance 50 ml 50 ml Problem List Problems Medical Problems: (1) Diarrhea Status: Acute (2) Hypokalemia Status: Acute (3) Pancolitis Status: Acute Assessment Apparent enterocolitis, clinically better. Historically c/w infectious process but enteric studies negative. BECKY/ACD--thyroid? Plan of Care Note OK with me to advance diet and consider home. Given no proof of enteric bacterial infection, would not send home on antibiotics. Needs to f/u with me in 2-3 weeks. Anticipate endoscopy given abnormalities on CT. Hemodynamically unstable?: No Is patient in severe pain?: No Is NPO status required?: No STEPHEN FRY MD October 31, 2019 12:21
--- NOTE | 2019-10-31 12:57 | PDOC3 ---
Discharge Summary Date of Admission: October 30, 2019 Date of Discharge: October 31, 2019 Follow-Up: 3-5 days Admitting Diagnosis comment: discharge dx ==== Abdomiinal pain secondary to acute colitis, etiology undetermined at the present time but likely infectious in nature CT appearance does not suggest an obstruction and is favored on account of an enterocolitis either infectious or inflammatory. ///correlation for a known history of inflammatory bowel disease. Leukocytosis improved Moderate dehydration improved Iron deficiency NORMOCYTIC ANEMIA Hypothyroidism Plan: continue antibiotics follow gi recommendations symptomatic relief of symptoms reassess in the am await cultures D/W RN by phone gi is ok to d/c today History of Present Illness History of Present Illness No acute events reported overnight, case discussed with nursing staff patient in no acute distress no complaints during my visit Vitals Vitals Vital Signs Date Time Temp Pulse Resp B/P (MAP) Pulse Ox O2 Delivery O2 Flow Rate FiO2 10/31/19 07:14 98.1 72 16 149/91 (110) 98 Room Air 98.1 Physical Exam Physical Exam GEN.: No apparent distress. Alert and oriented. HEENT: Head is normocephalic, atraumatic NECK: Supple. LUNGS: Clear to auscultation. HEART: RRR, S1, S2 present. Peripheral pulses intact ABDOMEN: Soft, nontender. Positive bowel sounds. EXTREMITIES: Without any cyanosis. NEUROLOGIC: Normal speech, normal tone PSYCHIATRIC: Normal affect, normal mood. SKIN: No ulcerations General: Alert, Oriented X3, Cooperative, No acute distress Abdomen: Soft, No tenderness Extremities: No cyanosis Labs LABS SOURCE: BLOOD ENTR: 10/29/19-[address]: JERROD SANFORD MD SPDC: NON,STAFF STEPHEN FRY MD ORDERED: BCULT Procedure Result BLOOD CULTURE Preliminary NO GROWTH AFTER 1 DAY COMMENTS: Has specimen been collected/obtained? Y Procedure Result FECAL WBC,GRAM STAIN Final WBCS FEW COMMENTS LIQUID STOOL 1. Automated exposure control 2. Adjustment of the mA and/or kV according to patient size 3. Use of iterative reconstruction technique. Findings: Unremarkable lower chest. The liver is somewhat prominent in size but no different from the [address] evidence for acute cholecystitis. Unchanged caliber of the common bile duct. Unremarkable pancreas. Within normal limits spleen and adrenal glands. Symmetric kidney size and enhancement. No hydroureteronephrosis. Circumferential wall thickening of the urinary bladder though potentially in part related to underdistention. Within normal limits uterus for patient age. No concerning adnexal abnormality. Mostly collapsed colon. Some incompletely formed stool within the proximal colon suggesting a diarrheal state. Mild wall thickening of the proximal colon. The appendix is not well-visualized. Mild small bowel dilatation such as along the central aspect of the abdomen extending into the upper pelvis. No discrete transition point to suggest a mechanical obstruction however the more distal bowel exhibits mild wall thickening with surrounding inflammatory changes through the terminal ileum such as seen on axial image 77 series 2. No pneumatosis or perforation. Unremarkable stomach noting incomplete distention. Unremarkable vasculature. Small amount of fluid within the pelvis. No lymphadenopathy. No free air. Unremarkable body wall soft tissues. Asymmetric periarticular sclerosis around the right SI joint. Impression: Segments of mild small bowel dilatation in addition to regions of small bowel wall thickening and surrounding inflammatory changes such as at the anterior pelvis on image 77 series 2. Mild colonic inflammatory changes as well. The appearance does not suggest an obstruction and is favored on account of an enterocolitis either infectious or inflammatory. Recommend correlation for a known history of inflammatory bowel disease. Note is also made that there is asymmetric manifestations of sacroiliitis on the right further raising the question of inflammatory bowel disease. Electronically signed by: OMAR TEJADA MD (10/29/2019 11:10 AM) [id number] FINAL DIAGNOSIS Problems Medical Problems: (1) Diarrhea Status: Acute (2) Hypokalemia Status: Acute (3) Pancolitis Status: Acute Brief Hospital Course Ms. Johns is a 38 old [sex] who presented with [ acute colitis ] CONDITION AT DISCHARGE: Improved Discharge Medications Current Medications Sodium Chloride 1,000 ml @ 1,000 mls/hr 1X ONCE IV Last administered on 10/29/19at 09:45; Start 10/29/19 at 09:45; Stop 10/29/19 at 10:44; Status DC Fentanyl Citrate (Fentanyl 2ml Vial) 50 mcg 1X ONCE IV Last administered on 10/29/19at 09:45; Start 10/29/19 at 09:45; Stop 10/29/19 at 09:46; Status DC Ketorolac Tromethamine (Toradol 30mg Vial) 30 mg 1X ONCE IV Last administered on 10/29/19at 09:44; Start 10/29/19 at 09:45; Stop 10/29/19 at 09:46; Status DC Ondansetron HCl (Zofran) 4 mg 1X ONCE IV Last administered on 10/29/19at 09:44; Start 10/29/19 at 09:45; Stop 10/29/19 at 09:46; Status DC Ondansetron HCl (Zofran) 4 mg STK-MED ONCE .ROUTE ; Start 10/29/19 at 09:42; Stop 10/29/19 at 09:42; Status DC Ketorolac Tromethamine (Toradol 30mg Vial) 30 mg STK-MED ONCE .ROUTE ; Start at 09:42; Stop 10/29/19 at 09:42; Status DC Fentanyl Citrate (Fentanyl 2ml Vial) 100 mcg STK-MED ONCE .ROUTE ; Start at 09:42; Stop 10/29/19 at 09:42; Status DC Iohexol (Omnipaque 300 Mg/ml) 75 ml 1X ONCE IV Last administered on 10/29/19at 10:38; Start 10/29/19 at 10:15; Stop 10/29/19 at 10:21; Status DC Potassium Chloride (Klor-Con) 40 meq 1X ONCE PO Last administered on 10/29/19at 10:53; Start 10/29/19 at 10:30; Stop 10/29/19 at 10:36; Status DC Potassium Chloride/Water 100 ml @ 50 mls/hr 1X ONCE IV Last administered on 10/29/19at 10:53; Start 10/29/19 at 10:45; Stop 10/29/19 at 12:44; Status DC Sodium Chloride 500 ml @ 100 mls/hr 1X ONCE IV Last administered on 10/29/19at 10:57; Start 10/29/19 at 11:15; Stop 10/29/19 at 16:14; Status DC Ondansetron HCl (Zofran) 4 mg PRN Q8HRS PRN IV NAUSEA/VOMITING; Start 10/29/19 at 12:00; Stop 10/30/19 at 11:59; Status DC Fentanyl Citrate (Fentanyl 2ml Vial) 50 mcg PRN Q1HR PRN IV PAIN Last administered on 10/29/19at 19:45; Start 10/29/19 at 12:00; Stop 10/30/19 at 11:59; Status DC Potassium Chloride 20 meq/ Sodium Chloride 1,010 ml @ 125 mls/hr Q8H5M IV ; Start 10/29/19 at 12:10; Stop 10/30/19 at 12:09; Status UNV Acetaminophen (Tylenol) 650 mg PRN Q4HRS PRN PO FEVER > 100.3'F; Start 10/29/19 at 12:00; Stop 10/30/19 at 11:59; Status DC Metronidazole 100 ml @ 100 mls/hr 1X ONCE IV Last administered on 10/29/19at 12:00; Start 10/29/19 at 12:00; Stop 10/29/19 at 12:59; Status DC Ciprofloxacin (Cipro) 500 mg 1X ONCE PO Last administered on 10/29/19at 12:28; Start 10/29/19 at 12:00; Stop 10/29/19 at 12:03; Status DC Potassium Chloride/Sodium Chloride 1,000 ml @ 125 mls/hr Q8H IV Last administered on 10/29/19at 14:59; Start 10/29/19 at 12:15; Stop 10/29/19 at 20:14; Status DC Ondansetron HCl (Zofran) 4 mg PRN Q4HRS PRN IV NAUSEA/VOMITING; Start 10/29/19 at 12:15 Zolpidem Tartrate (Ambien) 5 mg PRN QHS PRN PO INSOMNIA Last administered on 10/30/19at 21:28; Start 10/29/19 at 12:15 Acetaminophen (Tylenol) 650 mg PRN Q4HRS PRN PO TEMP OVER 100.4F OR MILD PAIN; Start 10/29/19 at 12:15 Diphenhydramine HCl (Benadryl) 25 mg PRN Q4HRS PRN IVP ITCHING; Start 10/29/19 at 12:15 Docusate Sodium (Colace) 100 mg PRN BID PRN PO HARD STOOLS; Start 10/29/19 at 12:15 Albuterol Sulfate (Ventolin Neb Soln) 2.5 mg PRN Q4HRS PRN NEB SHORTNESS OF BREATH; Start 10/29/19 at 12:15 Guaifenesin (Robitussin) 200 mg PRN Q4HRS PRN PO COUGH; Start 10/29/19 at 12:15 Lorazepam (Ativan) 0.5 mg PRN Q4HRS PRN PO ANXIETY / AGITATION Last administered on 10/31/19at 00:23; Start 10/29/19 at 12:15 Enoxaparin Sodium (Lovenox 40mg Syringe) 40 mg Q24H SQ Last administered on 10/30/19at 13:35; Start 10/29/19 at 13:00 Levofloxacin/ Dextrose 100 ml @ 100 mls/hr Q24H IV Last administered on 10/30/19at 15:00; Start 10/29/19 at 15:00 Azithromycin 500 mg/Sodium Chloride 250 ml @ 250 mls/hr Q24H IV Last administered on 10/30/19at 20:00; Start 10/29/19 at 16:00 Dicyclomine HCl (Bentyl) 10 mg PRN QID PRN PO GI SYMPTOMS Last administered on 10/30/19at 10:40; Start 10/29/19 at 16:00 Fentanyl Citrate (Fentanyl 2ml Vial) 100 mcg PRN Q1HR PRN IVP PAIN Last administered on 10/29/19at 20:53; Start 10/29/19 at 20:15; Stop 10/29/19 at 22:11; Status DC Fentanyl Citrate (Fentanyl 2ml Vial) 100 mcg PRN Q2HR PRN IVP SEVERE PAIN 7-10 Last administered on 10/31/19at 12:20; Start 10/29/19 at 22:15 Ketorolac Tromethamine (Toradol 30mg Vial) 30 mg 1X ONCE IVP Last administered on 10/29/19at 22:23; Start 10/29/19 at 22:30; Stop 10/29/19 at 22:31; Status DC Ketorolac Tromethamine (Toradol 30mg Vial) 30 mg 1X ONCE IVP Last administered on 10/30/19at 11:10; Start 10/30/19 at 11:15; Stop 10/30/19 at 11:16; Status DC Ketorolac Tromethamine (Toradol 15mg Vial) 15 mg PRN Q8HRS PRN IVP PAIN Last administered on 10/31/19at 08:55; Start 10/30/19 at 11:15; Stop 11/04/19 at 11:14 Lactobacillus Rhamnosus (Culturelle) 1 cap BID PO ; Start 10/31/19 at 21:00 Vital Signs Vital Signs Date Time Temp Pulse Resp B/P (MAP) Pulse Ox O2 Delivery O2 Flow Rate FiO2 10/31/19 11:00 97.9 75 18 162/99 (120) 100 Room Air 97.9 Labs Laboratory Tests Test 10/29/19 15:25 10/30/19 04:30 10/31/19 04:15 10/31/19 08:10 Stool Campylobacter PCR Negative (NEGATIVE) Stool E. coli Shiga Toxins (PCR) Negative (NEGATIVE) Stool Salmonella PCR Negative (NEGATIVE) Stool Shigella PCR Negative (NEGATIVE) Clostridium difficile Toxin (PCR) Negative (NEGATIVE) White Blood Count 11.4 x10^3/uL (4.0-11.0) Red Blood Count 3.94 x10^6/uL (3.50-5.40) Hemoglobin 10.9 g/dL (12.0-15.5) Hematocrit 33.4 % (36.0-47.0) Mean Corpuscular Volume 85 fL (79-100) Mean Corpuscular Hemoglobin 28 pg (25-35) Mean Corpuscular Hemoglobin Concent 33 g/dL (31-37) Red Cell Distribution Width 15.7 % (11.5-14.5) Platelet Count 293 x10^3/uL (140-400) Neutrophils (%) (Auto) 82 % (31-73) Lymphocytes (%) (Auto) 13 % (24-48) Monocytes (%) (Auto) 4 % (0-9) Eosinophils (%) (Auto) 0 % (0-3) Basophils (%) (Auto) 0 % (0-3) Neutrophils # (Auto) 9.4 x10^3/uL (1.8-7.7) Lymphocytes # (Auto) 1.5 x10^3/uL (1.0-4.8) Monocytes # (Auto) 0.5 x10^3/uL (0.0-1.1) Eosinophils # (Auto) 0.0 x10^3/uL (0.0-0.7) Basophils # (Auto) 0.0 x10^3/uL (0.0-0.2) Sodium Level 139 mmol/L (136-145) 138 mmol/L (136-145) Potassium Level 3.8 mmol/L (3.5-5.1) 3.5 mmol/L (3.5-5.1) Chloride Level 105 mmol/L (98-107) 103 mmol/L (98-107) Carbon Dioxide Level 24 mmol/L (21-32) 27 mmol/L (21-32) Anion Gap 10 (6-14) 8 (6-14) Blood Urea Nitrogen 12 mg/dL (7-20) 11 mg/dL (7-20) Creatinine 1.0 mg/dL (0.6-1.0) 0.8 mg/dL (0.6-1.0) Estimated GFR (Cockcroft-Gault) 75.1 97.1 Glucose Level 89 mg/dL (70-99) 77 mg/dL (70-99) Calcium Level 7.7 mg/dL (8.5-10.1) 7.7 mg/dL (8.5-10.1) Thyroid Stimulating Hormone (TSH) 6.181 uIU/mL (0.358-3.74) Free Thyroxine 1.39 ng/dL (0.76-1.46) Free Triiodothyronine (T3) pg/mL 1.00 pg/mL (2.18-3.98) BUN/Creatinine Ratio 14 (6-20) Total Bilirubin 0.3 mg/dL (0.2-1.0) Aspartate Amino Transf (AST/SGOT) 11 U/L (15-37) Alanine Aminotransferase (ALT/SGPT) 17 U/L (14-59) Alkaline Phosphatase 81 U/L (46-116) Total Protein 7.1 g/dL (6.4-8.2) Albumin 2.4 g/dL (3.4-5.0) Albumin/Globulin Ratio 0.5 (1.0-1.7) Urine Collection Type Unknown Urine Color Yellow Urine Clarity Clear Urine pH 6.0 (<5.0-8.0) Urine Specific [place] 1.025 (1.000-1.030) Urine Protein 30 mg/dL (NEG-TRACE) Urine Glucose (UA) Negative mg/dL (NEG) Urine Ketones (Stick) >=80 mg/dL (NEG) Urine Blood Moderate (NEG) Urine Nitrite Negative (NEG) Urine Bilirubin Negative (NEG) Urine Urobilinogen Dipstick 0.2 mg/dL (0.2 mg/dL) Urine Leukocyte Esterase Negative (NEG) Urine RBC 11-20 /HPF (0-2) Urine WBC 1-4 /HPF (0-4) Urine Squamous Epithelial Cells Many /LPF Urine Bacteria Few /HPF (0-FEW) Urine Mucus Marked /LPF Laboratory Tests Test 10/31/19 04:15 10/31/19 08:10 Sodium Level 138 mmol/L (136-145) Potassium Level 3.5 mmol/L (3.5-5.1) Chloride Level 103 mmol/L (98-107) Carbon Dioxide Level 27 mmol/L (21-32) Anion Gap 8 (6-14) Blood Urea Nitrogen 11 mg/dL (7-20) Creatinine 0.8 mg/dL (0.6-1.0) Estimated GFR (Cockcroft-Gault) 97.1 BUN/Creatinine Ratio 14 (6-20) Glucose Level 77 mg/dL (70-99) Calcium Level 7.7 mg/dL (8.5-10.1) Total Bilirubin 0.3 mg/dL (0.2-1.0) Aspartate Amino Transf (AST/SGOT) 11 U/L (15-37) Alanine Aminotransferase (ALT/SGPT) 17 U/L (14-59) Alkaline Phosphatase 81 U/L (46-116) Total Protein 7.1 g/dL (6.4-8.2) Albumin 2.4 g/dL (3.4-5.0) Albumin/Globulin Ratio 0.5 (1.0-1.7) Urine Collection Type Unknown Urine Color Yellow Urine Clarity Clear Urine pH 6.0 (<5.0-8.0) Urine Specific [place] 1.025 (1.000-1.030) Urine Protein 30 mg/dL (NEG-TRACE) Urine Glucose (UA) Negative mg/dL (NEG) Urine Ketones (Stick) >=80 mg/dL (NEG) Urine Blood Moderate (NEG) Urine Nitrite Negative (NEG) Urine Bilirubin Negative (NEG) Urine Urobilinogen Dipstick 0.2 mg/dL (0.2 mg/dL) Urine Leukocyte Esterase Negative (NEG) Urine RBC 11-20 /HPF (0-2) Urine WBC 1-4 /HPF (0-4) Urine Squamous Epithelial Cells Many /LPF Urine Bacteria Few /HPF (0-FEW) Urine Mucus Marked /LPF Allergies Allergies Coded Allergies Type Severity Reaction Last Updated Verified No Known Drug Allergies 12/22/14 No Disposition/Orders: D/C to Home Hemodynamically unstable?: No Is patient in severe pain?: No Is NPO status required?: No ANICETO BROWN MD October 31, 2019 12:57
[2019-10-31] MEDS ORDERED: DICY10CA3 PO (13:00)
[2019-10-31] MEDS ORDERED: ACET325T9 PO (13:00)
[2019-10-31] MEDS ORDERED: LEVO500T59 PO (13:00)
[2019-10-31] MEDS ORDERED: LACT1CAP19 PO (13:00)
--- NOTE | 2019-10-31 13:01 | DISCH ---
DISCHARGE INSTRUCTIONS Condition on Discharge Condition on Discharge: Stable Activity After Discharge Activity Instructions for Disc: Activity as tolerated Lifting Instructions after Dis: No heavy lifting, No pulling or pushing Exercise Instruction after Dis: Walk 10 min, 3 x per day Driving Instructions after Dis: Do not drive Diet after Discharge Diet after Discharge: Regular Checks after Discharge Checks after discharge: Check blood press - daily Contacting the DRRadha after DC Call your doctor for: If your condition worsens Warfarin Follow-Up Warfarin Follow UP: see gi in 2 weeks ANICETO BROWN MD October 31, 2019 13:01
[2019-10-31] MEDS ORDERED: LACTOBACILLUS RHAMNOSUS GG 1 CAPSULE. PO SCH (21:00)
== END 2019-10-31 14:30 | disposition home or self-care (01) | DRG 392 ==
LOC: ER 08:46 → 6 SOUTH 13:11 → OBSVTOIN 10-30 23:14
PROVIDERS: ADMIT Internal Medicine; ATTEND Internal Medicine
DX: A09 Infectious gastroenteritis and colitis, unspecified (principal); E87.6 Hypokalemia; E86.0 Dehydration; E04.9 Nontoxic goiter, unspecified; E89.0 Postprocedural hypothyroidism; G89.29 Other chronic pain; M46.1 Sacroiliitis, not elsewhere classified; D50.9 Iron deficiency anemia, unspecified
CPT/HCPCS: 36415; 74177; 80048; 80053; 81001; 81025; 83540; 83550; 83690; 84439; 84442; 84443; 84481; 85007; 85025; 86812; 87040; 87045; 87205; 87493; 87505; 94760; 96361; 96365; 96375; 99285; G0378; G0379; J0456; J1650; J1885; J1956; J2405; J3010; J3480; J3490; J7030; J7040; J7050; Q9967